=== PATIENT | female | born 1940 | race Caucasian/White ===

== ENCOUNTER → 2018-02-10 07:07 | Outpatient (CLI) | payer MEDICARE, OTHER, SELFPAY ==
[2018-02-10 10:55] LABS: Vitamin D,25 Hydroxy 46.6 ng/mL (29.95-100.01)
[2018-02-10 11:04] LABS: ALB/GLOB Ratio 1.1 RATIO (0.9-2.4); AST(SGOT) 24 U/L (15-37); Alanine Aminotransfer ALT/SGPT 25 U/L (13-56); Albumin, Serum 3.9 g/dL (3.2-5.0); Alkaline Phosphatase 58 U/L (45-117); Anion Gap 8 (5-15); BUN 16 mg/dL (7-18); BUN/Creat Ratio 19.4 RATIO (10-20); Calcium,Total 9.2 mg/dL (8.5-10.1); Chloride 106 mmol/L (98-107); Cholesterol 203 mg/dL (200); Creatinine, Serum 0.82 mg/dL (0.55-1.02); EST Glomerular Filtration Rate 72 mL/min (>60); Est Glom Filt Rate - Afr Amer 87 mL/min (>60); Globulin 3.6 g/dL (2.2-4.2); Glucose 67 mg/dL (74-106); High Density Lipoprotein 71 mg/dL; Potassium 4.3 mmol/L (3.5-5.1); Protein, Total 7.5 g/dL (6.4-8.2); Sodium Level 145 mmol/L (136-145); Triglycerides 69 mg/dL; Very Low Density Lipoprotein 14 mg/dL (5-40)
== END ==
PROVIDERS: Family Provider Family Medicine; PCP Family Medicine; Referring Provider Family Medicine; Visit Provider Family Medicine
DX: E78.5 Hyperlipidemia, unspecified (principal); E55.9 Vitamin D deficiency, unspecified; R53.83 Other fatigue
CPT/HCPCS: 36415; 80053; 80061; 82306; 84443

== ENCOUNTER → 2018-03-12 07:05 | Outpatient (CLI) | payer MEDICARE, OTHER, SELFPAY ==
--- NOTE | 2018-03-12 07:11 | BI_ITS ---
MAMMOGRAPHY - BILATERAL SCREENING REASON FOR EXAM: Female, 78 years old. Routine annual screening examination. PERTINENT HISTORY: Non-contributory. TECHNIQUE: Digital bilateral breast karin (3D mammographic acquisition) in the CC and MLO projections. 2-D mediolateral oblique (MLO) and craniocaudad (CC) views of both breasts were obtained. CAD: Full Field Digital Mammography with Computer Added Detection was performed. COMPARISON: Comparison is made with prior study dated February 20, 2017 and February 20, 2060. FINDINGS: Breast Composition: The breasts are heterogeneously dense, which may obscure small masses. There are no dominant masses or suspicious calcifications. Stable asymmetry of breast tissue where glandular tissue is seen in the deep slightly medial aspect of the left breast as compared to the right side. No other significant abnormalities are identified. There has been no significant change since the prior study. BI/SCREENING MAMM (CAD), BILAT IMPRESSION: Stable bilateral screening mammogram. Yearly follow-up mammogram recommended. (A) ASSESSMENT CATEGORY: BIRADS Category 2: Benign. A letter regarding these results will be sent to the patient by the facility within 30 days. Approximately 10% of breast cancers are not detected by mammography. A normal mammogram should not delay biopsy of a clinically suspicious abnormality. [id number] Electronically Signed: Luis Fernando Suarez MD at 9:07 EST Tel [phone], Service support ,
--- NOTE | 2018-03-12 07:59 | BD_ITS ---
STUDY: DUAL ENERGY X-RAY ABSORPTIOMETRY / DXA REASON FOR EXAM: Female, 78 years old. The patient is postmenopausal. Loss of height. TECHNIQUE: Bone Mineral Density (BMD) measurements of lumbar spine and bilateral hips were obtained. COMPARISON: Comparison is made with prior study dated February 20, 2016. FINDINGS: Lumbar Spine (L1-L4): g/cm2 (1.151) / T-score (-0.1) / Z-score (1.7) Findings are suggestive of normal bone density with a low fracture risk. Left Femur Total: g/cm2 (0.912) / T-score (-0.8) / Z-score (1.0) Left Femoral Neck: g/cm2 (0.903) / T-score (-1.0) / Z-score (1.0) Right Femur Total: g/cm2 (0.929) / T-score (-0.6) / Z-score (1.2) Right Femoral Neck: g/cm2 (0.904) / T-score (-1.0) / Z-score (1.0) The T-Scores on the most recent prior examination were: Lumbar Spine (L1-L4): There has been improvement of bone density since the previous examination. Left Femur Total: which represents a worsening of 2.3%. Right Femur Total: which represents a worsening of 0.7%. BD/Dexa Bone Density Study IMPRESSION: The patient is considered normal as outlined below according to World Rafael Organization (WHO) criteria with a low fracture risk. There has been worsening of bone density since the previous examination. Reference Information: The T-score is the number of standard deviations above or below the standard which is normal for young adults at their peak bone mineral density. The World Health Organization (WHO) interprets the T-scores as follows: Above -1 Normal bone density Between -1 and -2.5 Osteopenia Equal to / or below -2.5 Osteoporosis As a practical clinical guideline, osteopenia may be graded as follows: Mild -1 through -1.5 Moderate -1.6 through -2.0 Severe -2.1 through -2.4 The Z-score is the number of standard deviations above or below age-matched controls. A Z-score of less than -1.5 would be considered abnormal. References: 1. NIH Osteoporosis and Related Bone Diseases http://www.osteo.org 2. International Society for Clinical Densitometry http://www.iscd.org 3. National Osteoporosis Foundation http://www.nof.org Electronically Signed: Luis Fernando Suarez MD at 13:29 EST Tel [phone], Service support ,
== END ==
PROVIDERS: Family Provider Family Medicine; PCP Family Medicine; Referring Provider Family Medicine; Visit Provider Family Medicine
DX: Z12.31 Encounter for screening mammogram for malignant neoplasm of breast (principal); Z78.0 Asymptomatic menopausal state
CPT/HCPCS: 77063; 77067; 77080

== ENCOUNTER → 2019-02-16 | Outpatient (CLI) | payer MEDICARE, OTHER, SELFPAY ==
[2019-02-16 10:43] LABS: Hematocrit 41.7 % (37-47); Mean Corp Hgb Conc 31.2 g/dL (32-36); Mean Corpuscular Hgb 29.8 pg (27.0-32.0); Mean Corpuscular Volume 95.6 fL (81-99); Mean Platelet Vol. 9.9 fl (6.2-12.0); Platelet Count 206 K/mm3 (150-450); RBC Distribution Width CV 13.2 % (11.6-14.6); RBC Distribution Width SD 47.1 fl (35.1-43.9); Red Blood Count 4.36 M/mm3 (4.2-5.4); White Blood Count 3.8 K/mm3 (4.4-11.0)
[2019-02-16 11:06] LABS: Vitamin D,25 Hydroxy 38.3 ng/mL (29.95-100.01)
[2019-02-16 11:26] LABS: AST(SGOT) 24 U/L (15-37); Alanine Aminotransfer ALT/SGPT 26 U/L (13-56); Albumin, Serum 3.7 g/dL (3.2-5.0); Alkaline Phosphatase 61 U/L (45-117); Anion Gap 8 (5-15); BUN 17 mg/dL (7-18); Calcium,Total 8.7 mg/dL (8.5-10.1); Chloride 107 mmol/L (98-107); Cholesterol 180 mg/dL (200); Creatinine, Serum 0.85 mg/dL (0.55-1.02); EST Glomerular Filtration Rate 69 mL/min (>60); Est Glom Filt Rate - Afr Amer 84 mL/min (>60); Globulin 3.8 g/dL (2.2-4.2); Glucose 71 mg/dL (74-106); High Density Lipoprotein 67 mg/dL; Potassium 4.2 mmol/L (3.5-5.1); Protein, Total 7.5 g/dL (6.4-8.2); Sodium Level 143 mmol/L (136-145); Triglycerides 70 mg/dL; Very Low Density Lipoprotein 14 mg/dL (5-40)
== END | disposition home or self-care (01) ==
LOC: MTLAB 07:06
PROVIDERS: Family Provider Family Medicine; PCP Family Medicine; Referring Provider Family Medicine; Visit Provider Family Medicine
DX: Z00.00 Encounter for general adult medical examination without abnormal findings (principal)
CPT/HCPCS: 36415; 80053; 80061; 82306; 84443; 85027

== ENCOUNTER → 2019-03-16 07:06 | Outpatient (CLI) | payer MEDICARE, OTHER, SELFPAY ==
--- NOTE | 2019-03-16 07:09 | BI_ITS ---
MAMMOGRAPHY - BILATERAL SCREENING REASON FOR EXAM: Female, 79 years old. Routine annual screening examination. PERTINENT HISTORY: Non-contributory. TECHNIQUE: Digital bilateral breast norman (3D mammographic acquisition) in the CC and MLO projections. 2-D mediolateral oblique (MLO) and craniocaudad (CC) views of both breasts were obtained. CAD: Full Field Digital Mammography with Computer Added Detection was performed. COMPARISON: Comparison is made with prior study dated March 12, 2018 and February 20, 2017. FINDINGS: Breast Composition: The breasts are heterogeneously dense, which may obscure small masses. There are no dominant masses or suspicious calcifications. Stable asymmetry of breast tissue were more breast tissue is seen in the deep slightly medial aspect of the left breast as compared to the right side. This is unchanged. No other significant abnormalities are identified. There has been no significant change since the prior study. BI/SCREEN MAMM (CAD) W/NORMAN BILAT IMPRESSION: Stable bilateral screening mammogram. Yearly follow-up mammogram recommended. (A) ASSESSMENT CATEGORY: BIRADS Category 2: Benign. A letter regarding these results will be sent to the patient by the facility within 30 days. Approximately 10% of breast cancers are not detected by mammography. A normal mammogram should not delay biopsy of a clinically suspicious abnormality. [id number] Electronically Signed: Luis Fernando Suarez, at 8:22 EST , Service support ,
== END ==
PROVIDERS: Family Provider Family Medicine; PCP Family Medicine; Referring Provider Family Medicine; Visit Provider Family Medicine
DX: Z12.31 Encounter for screening mammogram for malignant neoplasm of breast (principal)
CPT/HCPCS: 77063; 77067

== ENCOUNTER → 2020-01-10 | Outpatient (CLI) | payer MEDICARE, OTHER, SELFPAY ==
[2020-01-10 15:23] LABS: Hematocrit 41.7 % (37-47); Hemoglobin 12.9 g/dL (12.0-15.0); Mean Corp Hgb Conc 30.9 g/dL (32-36); Mean Corpuscular Hgb 29.6 pg (27.0-32.0); Mean Corpuscular Volume 95.6 fL (81-99); Platelet Count 243 K/mm3 (150-450); RBC Distribution Width CV 12.7 % (11.6-14.6); RBC Distribution Width SD 45.4 fl (35.1-43.9); Red Blood Count 4.36 M/mm3 (4.2-5.4); White Blood Count 5.3 K/mm3 (4.4-11.0)
[2020-01-10 15:53] LABS: Anion Gap 6 (5-15); BUN 14 mg/dL (7-18); BUN/Creat Ratio 17.6 RATIO (10-20); Calcium,Total 9.1 mg/dL (8.5-10.1); Chloride 107 mmol/L (98-107); EST Glomerular Filtration Rate 74 mL/min (>60); Est Glom Filt Rate - Afr Amer 90 mL/min (>60); Glucose 79 mg/dL (74-106); Magnesium 2.3 mg/dL (1.6-2.6); Potassium 3.8 mmol/L (3.5-5.1); Sodium Level 144 mmol/L (136-145); Thyroid Stim Hormone (TSH) 1.96 uIU/mL (0.358-3.74)
== END | disposition home or self-care (01) ==
PROVIDERS: PCP Family Medicine; Referring Provider Family Medicine; Visit Provider Family Medicine
DX: E78.5 Hyperlipidemia, unspecified (principal); F41.9 Anxiety disorder, unspecified; R42 Dizziness and giddiness
CPT/HCPCS: 36415; 80048; 83735; 84443; 85027

== ENCOUNTER 2020-02-16 09:46 | Day surgery (SDC) | payer MEDICARE, OTHER, SELFPAY ==
[2020-01-27 14:27] VITALS: BMI 22.6
[2020-02-16] VITALS (7 sets, daily range): BP systolic 91–113; BP diastolic 65–71; PULSE 85–107; RESP 16–18; TEMP 36.3–36.4; O2SAT 91–99; BMI 21.5
--- NOTE | 2020-02-16 10:00 | HP_ITS ---
Intake Vital Signs 01/27/20 Height 5 ft 5 in 01/27/20 Weight: 136 lb 01/27/20 BP 124/57 H 01/27/20 Blood Pressure Location Rt brachial 01/27/20 Position Sitting 01/27/20 Respiration 18 01/27/20 Pulse 76 01/27/20 Pulse Source Monitor 01/27/20 Temp 97.3 F L 01/27/20 Temp Source Temporal 01/27/20 Pulse Oximetry (%) 99 01/27/20 Oxygen Delivery Method room air Intake Visit Reasons: CSCOPE Chief Complaint: c-scope consult Cell Attendant Helper Required: No Is patient in pain?: No Allergies No Known Allergies Allergy (Unverified 01/27/20 14:29) Medications sertraline 50 mg tablet 50 mg PO DAILY 01/27/20 [History Confirmed 01/27/20] simvastatin 20 mg tablet 20 mg PO QHS 01/27/20 [History Confirmed 01/27/20] PFSH Medical History Abdominal pain (Acute) Arthritis (Acute) Bacterial colitis (Acute) Diarrhea (Acute) Fatigue (Acute) Hyperlipidemia (Acute) Sleep apnea (Acute) Surgical History History of arthroscopic knee surgery (Acute) History of carpal tunnel release of both wrists (Acute) History of colonoscopy (Acute ~2012) Social History (Updated 02/01/20 @ 12:[address] Gerry Jasso MD) Smoking Status: Former smoker alcohol intake: current alcohol intake frequency: a few times a month substance use type: does not use HPI HPI Surgical H&P: Yes HPI: BRINDA CORRALES, is a 79 F who presents to the office today for Evaluation for colonoscopy. Patient has been having crampy diarrhea for about the last 4 weeks. There is not been any blood in it and has been explosive in nature. Her last colonoscopy was in 2012 and that was secondary to bacterial colitis. She has been using Kaopectate with some results of her looser stools. She is not complaining of any peritoneal irritation. She has not had any nausea or vomiting. ROS General General: Yes fatigue; no weight change, appetite, colon cancer, breast cancer or weakness HEENT HEENT: No difficulty swallowing, eye injury, eye surgery, swollen glands or hoarseness Endo Endocrine: No thyroid disease, diabetes mellitus, thyroid cancer, Hair loss, heat intolerance or cold intolerance Skin Skin: No rash or changing moles Breast Breast: No left breast lump, right breast lump, nipple discharge, breast pain, abnormal mammogram, abnormal US or breast enlargement Musc Musculoskeletal: Yes arthritis; no back problems, rheumatoid arthritis, gout or joint pain Cardio Cardiovascular: No murmur, pacemaker, heart disease, atrial fibrillation, high blood pressure, heart attack, heart stent, palpitations, shortness of breat with exertion or chest pain Psych Psychiatric: No depression, anxiety or hearing voices Resp Respiratory: No shortness of breath, Yes sleep apnea, No cough, No COPD, No asthma, No emphysema, No wheezing Gastro Gastrointestinal: Yes abdominal pain, No nausea or vomiting, Yes diarrhea, No constipation, No blood in stool, No acid reflux, No hemorrhoids, No ulcers, No gallbladder problem, No black,tarry stools Rajendra Hematologic: No blood thinners, No blood disorders, No bleeding, No anemia, No blood clots Neuro Neurologic: No system reviewed and no additional complaints, except as docu, No as per HPI, No abnormal walking, No abnormal hearing, No abnormal movements, No abnormal speech, No behavioral changes, No burning sensations, No confusion, No seizure-like activity, No unsteadiness, No dizziness, No localized weakness, No frequent falls, No headache(s), No lack of coordination, No loss of vision, No memory loss, No numbness, No other visual disturbances, No radiating pain, No restless legs, No sensory deficit, No fainting, No tingling, No tremor(s), No weakness, No other Exam Const General: no acute distress, well developed, well hydrated Orientation: oriented to person, oriented to place, oriented to time [facility] Head: normocephalic, atraumatic Ears: external ears normal Mouth: moist mucous membranes Eyes Sclera: sclerae normal Pupils: normal by confrontation Neck Neck: no lymphadenopathy noted Neck mass: No Thyroid: thyroid normal, symmetrical Chest Chest palpation & inspection: normal inspection of the chest Breast Palpation: No nipple discharge Resp Effort & Inspection: normal respiratory effort Auscultation: clear to auscultation bilaterally Percussion: percussion normal Cardio Rate: regular rate Rhythm: regular rhythm Heart Sounds: no murmurs GI Palpation: soft, no hepatosplenomegaly, no masses, nontender Rectal Exam: other Other: Rectal exam deferred. Extrem General: normal to inspection, no clubbing, cyanosis or edema Assessment & Plan Problems 1. Diarrhea, unspecified type R19.7 Plan I have discussed the above with the patient. I have offered the patient colonoscopy for evaluation. I have explained the risks/benefits of the procedure and described the procedure. I have discussed the risks with the patient, including but not limited to: infection, bleeding, perforation of the GI tract requiring emergency surgery, inability to complete the procedure, injury to any internal organs, complications of anesthesia, etc. - the patient understands and agrees to proceed. I have answered all the patient's questions to the patient's satisfaction and the patient has no further questions. The patient has been given instructions for the colon cleansing preparation. I am going to obtain stool studies on her as well. I will be doing random colon biopsies. Coding Level of Care Code Off vis,new,level 3 Diagnoses Diarrhea, unspecified type R19.7 ??Diarrhea type: unspecified type I have re-examined the patient. There are no clinical changes since date of exam.
[2020-02-16] MEDS: Lactated Ringers 1,000 ML 100 ML IV (10:14)
--- NOTE | 2020-02-16 11:00 | COLBX_PTH ---
PATIENT: BRINDA CORRALES LOC: EN U#:[id number] AGE/SX: 80/F ROOM: RE02/16/[address]: Dr. Gerry Jasso MD : 1940 BED: DIS: 02/16/2020 SPEC #: [id number] RECD: 02/16/20 11:51 STATUS: CARLY REPriya #: [id number] HUMBERTO: 02/16/20 11:[address]: Gerry Jasso DEPT: SURGICAL PATHOLOGY RECD BY: Hamida Desai ENTERED: 02/16/20 13:39 SP TYPE: COLON BX OT DR: Dr. New Allison MD Tissues: COLON BIOPSY Procedures: Trichrome (control) Special Stain Group II Surgery Specimen Level IV HEADER OPERATION: Colonoscopy (MAC) PRE-OP DIAGNOSIS: Diarrhea TISSUE SUBMITTED: Random colonic biopsy MICROSCOPIC DIAGNOSIS Colon, random biopsy: Fragments of colonic mucosa with changes consistent with collagenous colitis. See comment. SJ:virgil 02/17/20 COMMENT Trichrome stain with matched control is used in the evaluation of the specimen and shows focal thickening of subepithelial collagen band. 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 MICROSCOPIC DESCRIPTION Slides are reviewed. GROSS DESCRIPTION Received in fixative is one container labeled with the patient's name and designated random colonic biopsy. The specimen consists of multiple irregular fragments of light betancur soft tissue that in aggregate measure 1 x 0.5 x 0.1 cm. The specimen is totally submitted in one cassette. / CARMELA:virgil 02/16/20 TC:5 CPT: 38449, 76222
--- NOTE | 2020-02-16 11:01 | OP.COLON_ITS ---
Patient Name: Charlotte Ruiz Procedure Date: 02/16/2020 10:28 AM Date of : 1940 Age: 80 Procedure: Colonoscopy Indications: Clinically significant diarrhea of unexplained origin Providers: Gerry Jasso MD Referring MD: Michael Allison Medicines: See the Anesthesia note for documentation of the administered medications Patient Profile: This is a 80 year old female. Refer to note in patient chart for documentation of history and physical. Last Colonoscopy: 2012. Complications: No immediate complications. Procedure: Pre-Anesthesia Assessment: - Prior to the procedure, a History and Physical was performed, and patient medications and allergies were reviewed. The patient's tolerance of previous anesthesia was also reviewed. The risks and benefits of the procedure and the sedation options and risks were discussed with the patient. All questions were answered, and informed consent was obtained. Prior Anticoagulants: The patient has taken no previous anticoagulant or antiplatelet agents. ASA Grade Assessment: II - A patient with mild systemic disease. After reviewing the risks and benefits, the patient was deemed in satisfactory condition to undergo the procedure. After I obtained informed consent, the scope was passed under direct vision. Throughout the procedure, the patient's blood pressure, pulse, and oxygen saturations were monitored continuously. The adult colonoscope was introduced through the anus and advanced to the cecum, identified by appendiceal orifice and ileocecal valve. The colonoscopy was performed without difficulty. The patient tolerated the procedure well. The quality of the bowel preparation was good. Scope In: 10:37:12 AM Scope Withdrawal Time 0 hours 6 minutes 15 seconds Scope Out: 10:57:18 AM Total Procedure Duration Time 0 hours 20 minutes 6 seconds Findings: The colon (entire examined portion) appeared normal. Biopsies for histology were taken with a cold forceps from the entire colon for evaluation of microscopic colitis. The exam was otherwise without abnormality. Non-bleeding internal hemorrhoids were found during retroflexion. The hemorrhoids were mild and small. Impression: - The entire examined colon is normal. Biopsied. - The examination was otherwise normal. Recommendation: - Discharge patient to home. - Resume previous diet. - Continue present medications. - Await pathology results. - Repeat colonoscopy in 10 years for screening purposes. - Return to GI office in 1 week. Procedure Code(s): --- Professional --- 26831, Colonoscopy, flexible; with biopsy, single or multiple Diagnosis Code(s): --- Professional --- R19.7, Diarrhea, unspecified CPT copyright 2017 [employer]. All rights reserved. The codes documented in this report are preliminary and upon data coder operator review may be revised to meet current compliance requirements. MD Gerry Sorensen MD 02/16/2020 11:01:38 AM This report has been signed electronically. Number of Addenda: 0 Note Initiated On: 02/16/2020 10:28 AM
--- NOTE | 2020-02-16 11:02 | OP.CCLET_ITS ---
02/16/2020 Michael Allison [address] [place] [address] Re : Colonoscopy procedure for Charlotte Ruiz Dear Dr. Allison This procedure was performed on Sunday, February 16, 2020. My impressions and recommendations are as follows: Impressions : - The entire examined colon is normal. Biopsied. - The examination was otherwise normal. Recommendations : - Discharge patient to home. - Resume previous diet. - Continue present medications. - Await pathology results. - Repeat colonoscopy in 10 years for screening purposes. - Return to GI office in 1 week. My findings are described in the full procedure note, which is enclosed. If I can be of further assistance, please feel free to contact me at Doctor phone number(s): , Fax: [phone], Work: . Sincerely, MD Gerry Sorensen MD 02/16/2020 11:01:38 AM This report has been signed electronically.
== END 2020-02-16 11:51 | disposition home or self-care (01) ==
LOC: EN 09:46 → AC 09:46
PROVIDERS: Anesthesiology; PCP Family Medicine; Referring Provider Family Medicine; Visit Provider Surgery
PROC: 0DJD8ZZ Inspection of Lower Intestinal Tract, Via Natural or Artificial Opening Endoscopic (ICD-10-PCS; CPT 45378; principal; 2020-02-16 10:55)
DX: K52.831 Collagenous colitis (principal); K64.8 Other hemorrhoids; M19.90 Unspecified osteoarthritis, unspecified site; E78.5 Hyperlipidemia, unspecified; G47.30 Sleep apnea, unspecified; Z87.891 Personal history of nicotine dependence; Z79.899 Other long term (current) drug therapy; Z20.828 Contact with and (suspected) exposure to other viral communicable diseases
CPT/HCPCS: 45380; 87635; 88305; 88313; C9803; J7120; J2405; U0003

== ENCOUNTER → 2020-02-25 07:04 | Outpatient (CLI) | payer MEDICARE, OTHER, SELFPAY ==
[2020-02-16 10:09] VITALS: BMI 21.5
[2020-02-25 10:15] LABS: AST(SGOT) 26 U/L (15-37); Alanine Aminotransfer ALT/SGPT 22 U/L (13-56); Albumin, Serum 3.6 g/dL (3.2-5.0); Alkaline Phosphatase 58 U/L (45-117); Bilirubin, Direct 0.12 mg/dL (0.00-0.30); Cholesterol 175 mg/dL (200); Globulin 3.7 g/dL (2.2-4.2); High Density Lipoprotein 67 mg/dL; Protein, Total 7.3 g/dL (6.4-8.2); Triglycerides 72 mg/dL; Very Low Density Lipoprotein 14 mg/dL (5-40)
== END ==
PROVIDERS: PCP Family Medicine; Referring Provider Family Medicine; Visit Provider Family Medicine
DX: E78.5 Hyperlipidemia, unspecified (principal)
CPT/HCPCS: 36415; 80061; 80076

== ENCOUNTER → 2020-04-05 11:18 | Outpatient (CLI) | payer MEDICARE, OTHER, SELFPAY ==
[2020-02-16 10:09] VITALS: BMI 21.5
--- NOTE | 2020-04-05 11:19 | BI_ITS ---
MAMMOGRAPHY - BILATERAL SCREENING REASON FOR EXAM: Female, 80 years old. Routine annual screening examination. PERTINENT HISTORY: Non-contributory. TECHNIQUE: Digital bilateral breast norman (3D mammographic acquisition) in the CC and MLO projections. 2-D mediolateral oblique (MLO) and craniocaudad (CC) views of both breasts were obtained. CAD: Full Field Digital Mammography with Computer Added Detection was performed. COMPARISON: Comparison is made with prior study dated 03/16/2019. FINDINGS: Breast Composition: The breasts are heterogeneously dense, which may obscure small masses. There are no dominant masses or suspicious calcifications. Stable asymmetry of breast tissue where more breast tissue is seen in the deep slightly medial aspect of the left breast. No other significant abnormalities are identified. There has been no significant change since the prior study. BI/SCREEN MAMM (CAD) W/NORMAN BILAT IMPRESSION: Stable bilateral screening mammogram. Yearly follow-up mammogram recommended. (A) ASSESSMENT CATEGORY: BIRADS Category 2: Benign. A letter regarding these results will be sent to the patient by the facility within 30 days. Approximately 10% of breast cancers are not detected by mammography. A normal mammogram should not delay biopsy of a clinically suspicious abnormality. [id number] Electronically Signed: Luis Fernando Suarez, at 13:09 EST , Service support ,
--- NOTE | 2020-04-05 11:24 | BD_ITS ---
STUDY: DUAL ENERGY X-RAY ABSORPTIOMETRY / DXA REASON FOR EXAM: Female, 80 years old. PASTE THINNER -- HX OF HRT FOR 5 YRS IN PAST -- HX OF SMOKING IN PAST -- TAKES CALCIUM AND MULTIVITAMIN -- DOES MODERATE AMOUNT OF EXERCISE -- FAMILY HX OF OSTEO- MOTHER -- ASHOK OF 2 INCHES TECHNIQUE: Bone Mineral Density (BMD) measurements of lumbar spine and bilateral hips were obtained. COMPARISON: Comparison is made with prior examination dated 03/12/2018. FINDINGS: Lumbar Spine (L1-L4): g/cm2 (1.580) / T-score (3.2) / Z-score (5.0) Findings are suggestive of normal bone density with a low fracture risk. Left Femur Total: g/cm2 (0.894) / T-score (-0.9) / Z-score (1.0) Left Femoral Neck: g/cm2 (0.854) / T-score (-1.3) / Z-score (0.7) Right Femur Total: g/cm2 (0.951) / T-score (-0.5) / Z-score (1.4) Right Femoral Neck: g/cm2 (0.880) / T-score (-1.1) / Z-score (0.9) The T-Scores on the most recent prior examination were: Lumbar Spine (L1-L4): There has been improvement of bone density since the previous examination. Left Femur Total: which represents a worsening of 2%. Right Femur Total: which represents an improvement of 2.4%. BD/Dexa Bone Density Study IMPRESSION: The patient is considered osteopenic as outlined below according to World Rafael Organization (WHO) criteria with a low fracture risk. There has been improvement of bone density since the previous examination. Reference Information: The T-score is the number of standard deviations above or below the standard which is normal for young adults at their peak bone mineral density. The World Health Organization (WHO) interprets the T-scores as follows: Above -1 Normal bone density Between -1 and -2.5 Osteopenia Equal to / or below -2.5 Osteoporosis As a practical clinical guideline, osteopenia may be graded as follows: Mild -1 through -1.5 Moderate -1.6 through -2.0 Severe -2.1 through -2.4 The Z-score is the number of standard deviations above or below age-matched controls. A Z-score of less than -1.5 would be considered abnormal. References: 1. NIH Osteoporosis and Related Bone Diseases www osteo.org 2. International Society for Clinical Densitometry www iscd.org 3. National Osteoporosis Foundation www nof.org Electronically Signed: Luis Fernando Suarez, at 15:46 EST , Service support ,
== END ==
PROVIDERS: PCP Family Medicine; Referring Provider Family Medicine; Visit Provider Family Medicine
DX: Z78.0 Asymptomatic menopausal state (principal); Z12.31 Encounter for screening mammogram for malignant neoplasm of breast
CPT/HCPCS: 77063; 77067; 77080

== ENCOUNTER 2020-12-15 02:46 | Inpatient (IN) | payer MEDICARE, OTHER, SELFPAY ==
[2020-12-15] VITALS (82 sets, daily range): BP systolic 47–257; BP diastolic 16–189; PULSE 46–211; RESP 14–19; TEMP 35–39.4; O2SAT 80–100; BMI 26.8; BMI 25.3
[2020-12-15] MEDS: Heparin 10,000 UNITS/10 ML Vial 4000 UNITS IV (02:57)
--- NOTE | 2020-12-15 02:57 | EKG12_ITS ---
Test Reason : STEMI Blood Pressure : / mmHG Vent. Rate : 126 BPM Atrial Rate : 126 BPM P-R Int : 138 ms QRS Dur : 086 ms QT Int : 334 ms P-R-T Axes : 052 -51 081 degrees QTc Int : 483 ms Sinus tachycardia Left anterior fascicular block Abnormal ECG Confirmed by CATHIE HARGROVE, LORNA ([id number]), copy editor ROBYN RAMOS ([id number]) on 12/18/2020 1:07:45 PM Referred By: Suraj Washington Confirmed By:LORNA BRAND MD
--- NOTE | 2020-12-15 03:00 | EDS_ITS ---
HPI History of Present Illness Chief Complaint: CPR Narrative Narrative: 80-year-old female apparently woke up clutching her chest and then fell out of bed unresponsive. called 911, they directed him to start CPR which he did before paramedics arrived. EMS states CPR was in progress by the , when I hooked her up to the monitor she was in PEA, they performed ACLS with 1 round of epinephrine, after which on pulse check they had a perfusing rhythm and a pulse. They placed an I-gel for an airway. [facility] OF [facility] Medical History Abdominal pain Arthritis Bacterial colitis Diarrhea Fatigue Hyperlipidemia Sleep apnea Home Medications sertraline 50 mg tablet 50 mg PO DAILY 01/27/20 [History Last Taken Unknown] simvastatin 20 mg tablet 20 mg PO QHS 01/27/20 [History Last Taken Unknown] Allergy/AdvReac Type Severity Reaction Status Date / Time No Known Allergies Allergy Verified 12/15/20 03:18 Surgical History History of arthroscopic knee surgery History of carpal tunnel release of both wrists History of colonoscopy (~2012) Social History Smoking Status: Unknown if ever smoked alcohol intake: current alcohol intake frequency: a few times a month substance use type: does not use ROS ROS ED Review of Systems ROS Unobtainable: due to mental status EXAM Physical Exam Const Vital Signs: 12/15/20 02:49 12/15/20 02:51 12/15/20 02:57 Temperature 96.3 F L 96.3 F L Temperature Source Temporal Temporal Pulse Rate 134 H 134 H 127 H Respiratory Rate 15 15 16 Blood Pressure 84/64 L 84/64 L 85/65 L Blood Pressure Mean 70 70 71 Blood Pressure Source Pulse Ox 95 95 100 Oxygen Delivery Method Ambu-Bag Ambu-Bag Ambu-Bag Oxygen Flow Rate (L/min) 12/15/20 03:03 12/15/20 03:13 12/15/20 03:34 Temperature Temperature Source Pulse Rate 84 Respiratory Rate 14 Blood Pressure 74/62 L 65/51 L Blood Pressure Mean 66 55 Blood Pressure Source Monitor Pulse Ox 98 100 Oxygen Delivery Method Mechanical Ventilator Oxygen Flow Rate (L/min) 70 Positive well nourished and well developed Constitutional Narrative: Obtunded General Appearance ED: well developed HEENT normocephalic and atraumatic Eyes Eyes Narrative: Pupils 3 mm and very sluggishly responsive Neck supple Resp Resp Narrative: No spontaneous respirations. Equal breath sounds bilaterally with bagging. Cardio regular rate, regular rhythm and no murmurs Cardio Narrative: 1+ central pulses intact Rate: tachycardic GI non-distended Palpation: soft Back/Spine Back/Spine Narrative: Normal inspection Extremity Extremity Narrative: Flaccid. Atraumatic. Normal inspection. Neuro [place] Coma Scale: document GCS findings None None None 3 Skin Lesions: no lesions Rashes: no rashes MDM MDM MDM Narrative Medical decision making narrative: Prehospital EKG showed an inferior STEMI, which was called prehospital. We switched out her I-gel for an ETT, see the procedure note, and then obtained an EKG. It shows sinus tachycardia with a left anterior fascicular block and no acute STEMI at this time. She was given aspirin, I discussed with interventional cardiology Dr. Washington, who evaluated the patient in the emergency department and decided not to take her emergently to the [facility] and recommends ICU care at this time. We started bolusing the patient with normal saline upon arrival given her blood pressure in the 80s, this was persistent after 1 L, so she was started on Levophed. We did send her to CT for a head scan given the fairly unremarkable EKG here, it shows no acute hemorrhage. Lab Data Attestation: I reviewed the patient's lab results. Labs: Laboratory Results - last 24 hr 12/15/20 12/15/20 02:50 02:50 WBC 8.1 RBC 4.41 Hgb 13.2 Hct 43.0 MCV 97.5 MCH 29.9 MCHC 30.7 L RDW Std Deviation 46.4 H RDW Coeff of Addison 12.9 Plt Count 218 MPV 10.1 Immature Gran % (Auto) 1.700 H Neut % (Auto) 22.6 L Lymph % (Auto) 71.1 H [place] % (Auto) 4.1 Eos % (Auto) 0.0 Baso % (Auto) 0.5 Absolute Neuts (auto) 1.8 L Absolute Lymphs (auto) 5.75 H Nucleated RBC % 0.2 Differential Comment SCANNED Sodium 144 Potassium 3.0 L Chloride 108 H Carbon Dioxide 24.0 Anion Gap 12 BUN 16 Creatinine 1.09 H Estim Creat Clear Calc 41.36 Est GFR (MDRD) Af Amer 62 Est GFR (MDRD) Non-Af 52 L BUN/Creatinine Ratio 14.7 Glucose 261 H Calcium 8.8 Troponin I High Sens 13 Radiography Chest X-Ray - ED: 1 View, Read by ED Physician and CHF (With good ETT placement) Diagnostic Testing: Radiology Impression Chest X-Ray 12/15/20 03:10 IMPRESSION: Cannot exclude diffuse interstitial pneumonitis versus edema. Lines and tubes as described. Recommend advancing the nasogastric tube approximately 7-10 cm Electronically Signed: Paige Prieto MD at 3:23 EDT , Service support , EKG Initial EKG: Attestation: I personally reviewed and interpreted this EKG as follows: Interpretation: No Acute Injury Pattern, Sinus Tachycardia and LAFB Procedures Intubations Intubation Method: orotracheal (7.0 ETT, visualized passing through cords using MAC 3 glide scope) Intubation Verification: Positive color change and Bilateral breath sounds confirmed (And confirmed by chest x-ray) Intubation Complications: no complications Critical Care Time Critical Care Time: Yes Critical care time (excluding procedures): 30-74 minutes (40 min), Including time spent:, Discussing w/Patient &/or Family/Manager Income Tax, Discussing w/Consultants, Arranging Admission or Transfer and Performing Direct Patient Care at Bedside Discharge Plan Dx/Rx/DC Orders Clinical Impression: Cardiopulmonary arrest with successful resuscitation Disposition Disposition: Acute Care [facility]
[2020-12-15] MEDS: 0.9% Normal Saline 1,000 ML 999 ML IV ×2 (03:05→03:17)
[2020-12-15] MEDS: Aspirin 81 MG TAB.CHEW 324 MG NG (03:05)
--- NOTE | 2020-12-15 03:10 | RAD_ITS ---
STUDY: X-RAY CHEST REASON FOR EXAM: Female, 80 years old. chest pain TECHNIQUE: Single AP portable view of the chest. COMPARISON: None. FINDINGS: The endotracheal tube has the tip approximately 2.2 cm above marybel. The nasogastric tube has the tip below the diaphragm with sidehole at the EG junction. The lungs are normally expanded with subtle hazy opacities, cannot exclude mild diffuse soft tissue edema. There is no demonstrated pleural abnormality. Normal size heart. Normal mediastinum and luiz. Normal visualized pulmonary arteries. Normal visualized aortic arch and descending thoracic aorta. Normal visualized thoracic spine. Normal visualized ribs, clavicles, and shoulders. There is no demonstrated abnormality of the visualized soft tissue structures of the upper abdomen. RAD/Chest 1 View (Portable) IMPRESSION: Cannot exclude diffuse interstitial pneumonitis versus edema. Lines and tubes as described. Recommend advancing the nasogastric tube approximately 7-10 cm Electronically Signed: Paige Prieto MD at 3:23 EDT , Service support ,
[2020-12-15 03:14] LABS: Absolute Lymphocyte Count 5.75 X10^3/uL (0.83-4.51); Absolute Neutrophil Count 1.8 X10^3/uL (2.0-7.7); Basophil# 0.04 X10^3/uL; Basophil% 0.5 % (0-1); Hemoglobin 13.2 g/dL (12.0-15.0); Lymphocyte # 5.75 X10^3/ul (0.83-4.51); Lymphocyte % 71.1 % (19-41); Mean Corp Hgb Conc 30.7 g/dL (32-36); Mean Corpuscular Hgb 29.9 pg (27.0-32.0); Mean Corpuscular Volume 97.5 fL (81-99); Mean Platelet Vol. 10.1 fl (6.2-12.0); Monocyte# 0.33 X10^3/uL; Monocyte% 4.1 % (0-10); NRBC Flagged by Analyzer 0.2 % (0-5); Neutrophil # 1.83 X10^3/uL (2.7-7.7); Neutrophil % 22.6 % (47-70); POSITIVE DIFFERENTIAL YES; POSITIVE MORPHOLOGY YES; Platelet Count 218 K/mm3 (150-450); RBC Distribution Width CV 12.9 % (11.6-14.6); RBC Distribution Width SD 46.4 fl (35.1-43.9); Red Blood Count 4.41 M/mm3 (4.2-5.4); White Blood Count 8.1 K/mm3 (4.4-11.0)
--- NOTE | 2020-12-15 03:16 | CT_ITS ---
STUDY: CT BRAIN WITHOUT CONTRAST REASON FOR EXAM: Female, 80 years old. altered LOC RADIATION DOSAGE (If Supplied By Facility): CTDIvol = ( 44.99 ) mGy, DLP = ( 745.49 ) mGycm TECHNIQUE: Transaxial CT imaging of the brain was performed without administration of intravenous contrast material. Individualized dose optimization techniques were used for this CT. COMPARISON: No relevant priors. FINDINGS: Normal soft tissue structures. Normal calvarium. There is mild cerebral atrophy with widening of the extra-axial spaces and ventricular dilatation. There are areas of decreased attenuation within the white matter tracts of the supratentorial brain, consistent with microvascular disease changes. Normal basal ganglia and thalami. Normal brainstem. Normal cerebellum. There is no intracranial hemorrhage. There are no findings of an acute ischemic infarction. Normal visualized paranasal sinuses. CT/Brain/Head without Contrast IMPRESSION: Chronic changes as described. No acute intracranial hemorrhage or space-occupying lesion. Electronically Signed: Paige Prieto MD at 3:46 EDT , Service support ,
[2020-12-15 03:24] LABS: Differential Indicated SCAN CRITERIA MET
[2020-12-15 03:26] LABS: Anion Gap 12 (5-15); BUN 16 mg/dL (7-18); BUN/Creat Ratio 14.7 RATIO (10-20); Calcium,Total 8.8 mg/dL (8.5-10.1); Chloride 108 mmol/L (98-107); Creatinine, Serum 1.09 mg/dL (0.55-1.02); EST Glomerular Filtration Rate 52 mL/min (>60); Est Glom Filt Rate - Afr Amer 62 mL/min (>60); Estimated Creatinine Clearance 41.36 ml/min; Glucose 261 mg/dL (74-106); Sodium Level 144 mmol/L (136-145); Troponin-I HS 13 pg/mL (3.0-54.0)
[2020-12-15 03:37] LABS: Differential Comment SCANNED
[2020-12-15 03:47] LABS: Partial Thromboplast Time > 250.0 Seconds (24.1-36.2)
--- NOTE | 2020-12-15 03:52 | HP.PCM.HOS_ITS ---
HPI - General General Date of Admission: 12/15/20 HPI Narrative BRINDA CORRALES, is a 80 F with a significant history of hyperlipidemia and obstructive sleep apnea on CPAP/BiPAP who presents at the emergency department with cardiopulmonary arrest. History was taken from patient as patient was unresponsive. Per patient fall patient was sleeping patient's made a loud noise; curled herself up and fell. Patient's thought that patient was not breathing so he began CPR. Patient doubts the quality of CPR he gave because of space. Paramedics who was present the patient room reported that patient was in PEA arrest and 1 dose of epinephrine and CPR was done. Reportedly patient achieved ROSC. An LMA was placed which was switched to ET tube and mechanical ventilation began at the emergency department. In route to the emergency department a CODE BLUE was called. Later on a STEMI alert was called. On-call cardiology interventionalist saw patient at the emergency department and rule out STEMI as there were no reciprocal changes on EKG initially called as a STEMI. Follow-up EKG at the emergency department did not show ST elevations. STEMI alert at the hospital was canceled per cardiology recommendation. Because of hypotension patient was given IV bolus and was started on Levophed. Patient report that patient baseline blood pressure is low and typically is below 100. Patient was given heparin IV bolus; and aspirin by NG tube. Per cardiology recommendation patient was taken to CT scan for CT scan of her brain. CT scan of her brain did not show any bleeding. [facility] Medical History Abdominal pain Arthritis Bacterial colitis Diarrhea Fatigue Hyperlipidemia Sleep apnea Home Medications sertraline 50 mg tablet 50 mg PO DAILY 01/27/20 [History Last Taken Unknown] simvastatin 20 mg tablet 20 mg PO QHS 01/27/20 [History Last Taken Unknown] Allergy/AdvReac Type Severity Reaction Status Date / Time No Known Allergies Allergy Verified 12/15/20 03:18 other ( denied knowledge of any surgery. However patient's is unsure whether patient had tonsillectomy or chilhood surgeon.) Surgical History History of arthroscopic knee surgery History of carpal tunnel release of both wrists History of colonoscopy (~2012) Social History Smoking Status: Unknown if ever smoked alcohol intake: current alcohol intake frequency: a few times a month substance use type: does not use ROS ROS Narrative History is limited as patient is unresponsive and information was obtained from her . Pertinent positives and pertinent negatives obtained from patients is as noted in HPI. All other systems were reviewed and obtained from patient's are negative. Vital Signs Vital Signs Vital Signs: 12/15/20 02:49 12/15/20 02:51 12/15/20 02:57 Temperature 96.3 F L 96.3 F L Temperature Source Temporal Temporal Pulse Rate 134 H 134 H 127 H Respiratory Rate 15 15 16 Respiratory Pattern Blood Pressure 84/64 L 84/64 L 85/65 L Blood Pressure Mean 70 70 71 Blood Pressure Source Blood Pressure Position Pulse Ox 95 95 100 Oxygen Delivery Method Ambu-Bag Ambu-Bag Ambu-Bag Oxygen Flow Rate (L/min) Fraction of Inspired Oxygen (FIO2) 12/15/20 03:03 12/15/20 03:13 12/15/20 03:34 Temperature Temperature Source Pulse Rate 100 84 Respiratory Rate 19 H 14 Respiratory Pattern Normal Blood Pressure 74/62 L 65/51 L Blood Pressure Mean 66 55 Blood Pressure Source Monitor Blood Pressure Position Pulse Ox 98 100 100 Oxygen Delivery Method Mechanical Ventilator Oxygen Flow Rate (L/min) 70 Fraction of Inspired Oxygen (FIO2) 100 60 12/15/20 03:40 12/15/20 03:47 Temperature Temperature Source Pulse Rate 78 64 Respiratory Rate 14 14 Respiratory Pattern Blood Pressure 75/63 L 96/74 Blood Pressure Mean 67 81 Blood Pressure Source Monitor Blood Pressure Position Supine Pulse Ox 97 96 Oxygen Delivery Method Room Air Oxygen Flow Rate (L/min) 60 Fraction of Inspired Oxygen (FIO2) Weight Weight: 77.7 kg Body Mass Index (BMI) 26.8 Physical Exam Narrative Physical exam: General: Intubated on mechanical ventilation. Head: Normocephalic, atraumatic, no tenderness ENT, no trauma, moist mucous membranes, no rhinorrhea Neck: Nontender, no spinal tenderness, deformities, step-off CVS: Regular rate and rhythm Respiratory: Intubated. Lung sounds rhonchi. No wheezes. Abdomen: Soft, nontender, nondistended, normal bowel sounds, no masses : Deferred Back: Nontender, no CVA tenderness, no midline spinal tenderness, deformities, step-offs Extremities: No edema; cyanosis Skin: Normal color, no trauma, abrasions Neuro: Intubated on mechanical ventilation Psychiatry: Intubated on mechanical ventilation Results Lab / Micro Data Result Diagrams: 12/15/20 02:50 12/15/20 02:50 Labs: Laboratory Results - last 24 hr 12/15/20 02:50: WBC 8.1, RBC 4.41, Hgb 13.2, Hct 43.0, MCV 97.5, MCH 29.9, MCHC 30.7 L, RDW Std Deviation 46.4 H, RDW Coeff of [place]ison 12.9, Plt Count 218, MPV 10.1, Immature Gran % (Auto) 1.700 H, Neut % (Auto) 22.6 L, Lymph % (Auto) 71.1 H, Carbon % (Auto) 4.1, Eos % (Auto) 0.0, Baso % (Auto) 0.5, Absolute Neuts (auto) 1.8 L, Absolute Lymphs (auto) 5.75 H, Nucleated RBC % 0.2, Differential Comment SCANNED 12/15/20 02:50: Sodium 144, Potassium 3.0 L, Chloride 108 H, Carbon Dioxide 24.0, Anion Gap 12, BUN 16, Creatinine 1.09 H, Estim Creat Clear Calc 41.36, Est GFR (MDRD) Af Amer 62, Est GFR (MDRD) Non-Af 52 L, BUN/Creatinine Ratio 14.7, Glucose 261 H, Calcium 8.8, Troponin I High Sens 13 12/15/20 03:14: APTT > 250.0 H* Radiology Impression Chest X-Ray 12/15/20 03:10 IMPRESSION: Cannot exclude diffuse interstitial pneumonitis versus edema. Lines and tubes as described. Recommend advancing the nasogastric tube approximately 7-10 cm Electronically Signed: Paige Prieto MD at 3:23 EDT , Service support , Brain CT 12/15/20 03:16 IMPRESSION: Chronic changes as described. No acute intracranial hemorrhage or space-occupying lesion. Electronically Signed: Paige Prieto MD at 3:46 EDT , Service support , Assessment & Plan Assessment/Plan (1) Cardiopulmonary arrest with successful resuscitation: PLAN: Impression of head CT by radiology: No acute intracranial hemorrhage or space-occupying lesion. Actual CT head was independently interpreted and I agree with radiologist interpretation. Continue mechanical ventilation started at the emergency department. Patient looks comfortable without any sedation. As needed fentanyl IV ordered for pain and agitation. Radiologist impression impression of chest x-ray: Can not exclude diffuse interstitial pneumonitis versus edema. Actual chest x-ray was independently interpreted and agree with the records interpretation. Echocardiogram ordered. CT head did not show any infarct or bleed. Per cardiology recommendation will start heparin drip when PTT is appropriate. Review of labs showed unremarkable CBC. We will continue Levophed drip started at the emergency department. Received normal saline bolus at emergency department. Maintenance IV hydration with potassium initially ordered but with chest x-ray findings will discontinue nicole ntenance IV fluids at this time. Tube feeding flushes ordered. Trend CBC and BMP. Replace potassium. Check magnesium and phosphorus. Director [employer] consult. Hypokalemia Review of emergency medical department labs showed potassium 3.0. IV potassium supplementation ordered. DVT prophylaxis: Heparin bolus received at the emergency department. Heparin drip ordered. Charges/Coding Visit Charges Inpatient E&M: 61274 Init Hosp L3
[2020-12-15 03:55] LABS: International Normalized Ratio 1.3; Prothrombin Time (Protime)PT. 15.2 SECONDS (11.7-14.9)
--- NOTE | 2020-12-15 04:07 | ED.RN ---
0400 ptt greater than 250, lab redrawn to verify accuracy.
[2020-12-15 04:24] LABS: Partial Thromboplast Time 147.9 Seconds (24.1-36.2)
[2020-12-15 04:31] LABS: Allen Test Positive; Base Excess -7 mmol/L (-2 to +2); Blood Gas Specimen Type ART; FI02 60; Mode AC; O2 Delivery Device Adult Vent; PEEP 5; PO2 79 mmHG (75-100); RR 14; SITE L Radial; SO2 94 % (95-99); Total Carbon Dioxide 21 mmol/L; Vt 450; pCO2 42.2 mmHg (35-45); pH 7.28 (7.35-7.45)
[2020-12-15 05:08] LABS: Magnesium 2.7 mg/dL (1.6-2.6)
--- NOTE | 2020-12-15 05:55 | ECHOCS_ITS ---
Reason For Study: Cardiac Arrest Procedure This was a 2D Doppler, Color Flow transthoracic echocardiogram. Contrast injection was performed. Exam performed portable in ICU/CCU. Left Ventricle Severely dilated left ventricle. The estimated ejection fraction is EF 10-15 %. Right Ventricle Normal right ventricle. Mild global right ventricular systolic dysfunction. Atria Normal left atrium. Mitral Valve There is moderate mitral annular calcification. Mild (1+) mitral valve insufficiency. Tricuspid Valve Normal tricuspid valve. Moderate (2+) tricuspid valve insufficiency. Aortic Valve Aortic sclerosis, no stenosis. Mild (1+) aortic valve insufficiency. Pulmonic Valve The pulmonic valve is not well visualized. Great Vessels Normal aortic root. Pericardium/Pleural No pericardial effusion. Medication Diluted definity 2ml given slow IV push to enhance endocardial definition. MMode/2D Measurements & Calculations LVIDd: 5.3 cm IVSd: 0.77 cm Ao root diam: 3.6 cm LVIDs: 5.0 cm LVPWd: 0.66 cm RVDd: 3.3 cm FS: 5.5 % LAV(MOD-bp): 46.2 ml LVAd ap4: 26.5 cm2 SV(MOD-sp4): 7.7 ml LAV(MOD-bp) Indexed: 24.4 ml/m2 LVLd ap4: 6.5 cm LAV(MOD-sp2): 46.9 ml EDV(MOD-sp4): 86.2 ml LAV(MOD-sp4): 45.4 ml EDV(sp4-el): 91.2 ml LVAs ap4: 23.9 cm2 LVLs ap4: 6.0 cm ESV(MOD-sp4): 78.5 ml ESV(sp4-el): 80.7 ml EF(MOD-sp4): 8.9 % EF(sp4-el): 11.5 % SV(sp4-el): 10.5 ml LA A4 area: 16.3 cm2 LA dimension(2D): 3.3 cm RA A4 area: 10.1 cm2 Doppler Measurements & Calculations MV E max reese: 70.1 cm/sec Med Peak E' Reese: 4.6 cm/sec Ao V2 max: 107.4 cm/sec MV A max reese: 46.4 cm/sec E/E' med: 15.3 Ao max P.6 mmHg MV E/A: 1.5 Ao V2 mean: 76.2 cm/sec Ao mean P.5 mmHg Ao V2 VTI: 16.9 cm LV V1 max: 75.0 cm/sec PA V2 max: 72.8 cm/sec TR max reese: 333.3 cm/sec LV V1 max P.2 mmHg TR max P.5 mmHg ECHO/Echo Complete W/ Contrast Interpretation Summary The estimated ejection fraction is EF 10-15 %. Severe LV systolic function Global LV Hypokinesia Mild MR Mild AI Moderate TR No prior Echo to compare Ordering Physician: Jorge Herrera Referring Physician: New Allison Performed By: Romelia Ogden, PRABHAKAR, RVT
[2020-12-15] MEDS: Potassium Chloride 10mEq/100mL 10 MEQ/100 ML IV.SOLN. 100 MEQ IV BOLUS ×4 (06:33→11:17)
[2020-12-15] MEDS: 0.9% Normal Saline 1,000 ML 150 ML IV (06:35)
[2020-12-15] MEDS: LORazepam 2 MG/ML Syringe IV ×5 (07:13→20:01)
[2020-12-15 07:19] LABS: Absolute Lymphocyte Count 1.29 X10^3/uL (0.83-4.51); Absolute Neutrophil Count 10.9 X10^3/uL (2.0-7.7); Basophil# 0.04 X10^3/uL; Basophil% 0.3 % (0-1); Hematocrit 41.6 % (37-47); Lymphocyte # 1.29 X10^3/ul (0.83-4.51); Lymphocyte % 9.8 % (19-41); Mean Corp Hgb Conc 31.3 g/dL (32-36); Mean Corpuscular Hgb 29.9 pg (27.0-32.0); Mean Corpuscular Volume 95.6 fL (81-99); Mean Platelet Vol. 9.9 fl (6.2-12.0); Monocyte# 0.88 X10^3/uL; Monocyte% 6.7 % (0-10); NRBC Flagged by Analyzer 0 % (0-5); Neutrophil # 10.91 X10^3/uL (2.7-7.7); Neutrophil % 82.7 % (47-70); Platelet Count 239 K/mm3 (150-450); RBC Distribution Width CV 12.9 % (11.6-14.6); RBC Distribution Width SD 45.7 fl (35.1-43.9); Red Blood Count 4.35 M/mm3 (4.2-5.4); White Blood Count 13.2 K/mm3 (4.4-11.0)
[2020-12-15 07:32] LABS: Phosphorus 2.2 mg/dL (2.5-4.9)
--- NOTE | 2020-12-15 07:55 | PCS.PANDOC ---
PANDEMIC DOCUMENTATION INITIATED: Date: 12/11/2020 Time: 190
[2020-12-15 08:13] LABS: Partial Thromboplast Time 29.2 Seconds (24.1-36.2)
[2020-12-15] MEDS: 0.9% Saline Lock 10 ML Syringe IV ×4 (08:15→17:19)
[2020-12-15] MEDS: HEPARIN/D5w 25,000 UNITS 25,000 UNITS/250 ML IV.SOLN. 9 UNITS IV (08:16)
--- NOTE | 2020-12-15 08:28 | CON.PCM.CC_ITS ---
Assessment & Plan Assessment/Plan (1) Cardiopulmonary arrest with successful resuscitation: (2) Sleep apnea: (3) Acute respiratory failure with hypoxia: PLAN: RECOMMENDATIONS: 1. Obtain EEG and MRI 2. Defer to hospitalist on neurology consult 3. Wean pressors as tolerated 4. Obtain echocardiogram 5. Continue cardiopulmonary support 6. Attempt to avoid sedation if possible IMPRESSIONS: 1. Acute cardiopulmonary arrest of unclear etiology Unclear etiology at this time. Echocardiogram has been ordered for evaluation. Patient did have significant acidosis on presentation, but this can be seen in any cause of acute arrest. Unfortunately, targeted temperature management is not available. Window for its use is closed at this point. 2. Possible anoxic encephalopathy Patient may have had up to 30 minutes of pulseless activity. Patient appears to be neurologically devastated that this time. Other possible etiologies would be status epilepticus. Patient has had some intermittent what appears to be myoclonic jerking of the face. EEG and MRI will be ordered. Defer to hospitalist on timing of neurologist evaluation. 3. Acute kidney injury Clinical suspicion that this is secondary to the arrest. Prerenal etiology would be suspected for now. Will monitor urine output. Baseline creatinine appears to be about 0.8 and presentation creatinine of 1.09. If this is related to #1, anticipate improvement with control of blood pressure. 4. Obstructive sleep apnea/advanced age/depression/hypercholesterolemia Complicates care, management, recovery and prognosis. Patient currently intubated so CPAP not necessary. Hold home medications for now TIME: 40 minutes critical care time spent addressing patient's acute cardiopulmonary arrest, possible anoxic encephalopathy, acute kidney injury, review of all data and collaboration with care team (7 AM to 8:45 AM) HPI Consult Data Date of Consult: 12/15/20 HPI Narrative HPI Narrative: BRINDA CORRALES is a 80 F, with past medical history listed below, who presents to [facility] on 12/15/2020 secondary to a reported cardiopulmonary arrest that was witnessed. Patient reportedly was of her usual health yesterday, but was noted by her to sit up in bed and fall to the floor. Patient's reported that he was in the bathroom and had come back to bed when she abruptly awoke, made a harsh noise and then fell to the ground. The patient's thought that she was not breathing, so he initiated CPR. He did admit that she was not in a good position and he had stopped CPR to call for help. Patient's reports that he reinitiated CPR until EMS arrived. Patient believes that the entire episode could not have been more than 30 minutes. EMS reportedly arrived and gave 1 round of epinephrine and had a pulse. Patient did receive an eye gel for an airway and was transported to the emergency room for further evaluation. Initially in the ER, patient was a STEMI team. Patient was seen by cardiology and this was not thought to be related to an ST elevation ID, so patient was not taken to the Industrial Relations Analyst. Vitals on presentation showed a tachycardia of 134 bpm, hypotension 84/64 and 95% saturation with an Ambu bag. Patient was emergently intubated. Patient was given aspirin. Patient did receive fluid boluses secondary to hypotension, but was ultimately started on Levophed. CT of the head was unremarkable. Patient reportedly has had pupillary response, but otherwise little neurologic activity has been noted. Laboratory data in the ER showed a normal CBC, hypokalemia of 3 and elevated glucose of 261. Initial troponins were negative. Chest x-ray did show bilateral alveolar infiltrates. Since being in the intensive care unit, nursing reports patient's pupils are more brisk, but no spontaneous movement has been noted. Patient has had some facial twitching that was concerning for seizures, so she has been given 2 mg of Ativan. Otherwise, patient is not currently on any sedation and has no spontaneous movements. No posturing has been noted. Did discuss with patient's and daughter at the bedside to obtain further history. Patient is relatively healthy. Patient only takes a couple of medications and does have a history of obstructive sleep apnea. Per the family's report, she was of her usual health prior to this event. No additional information is noted at this time. [facility] Medical History (Updated 12/15/20 @ 08:[address] Gary Henry MD) Abdominal pain Arthritis Bacterial colitis Diarrhea Fatigue Hyperlipidemia Sleep apnea Home Medications sertraline 50 mg tablet 50 mg PO DAILY 01/27/20 [History Last Taken Unknown] simvastatin 20 mg tablet 20 mg PO QHS 01/27/20 [History Last Taken Unknown] Allergy/AdvReac Type Severity Reaction Status Date / Time No Known Allergies Allergy Verified 12/15/20 03:18 Surgical History History of arthroscopic knee surgery History of carpal tunnel release of both wrists History of colonoscopy (~2012) Social History Smoking Status: Unknown if ever smoked alcohol intake: current alcohol intake frequency: a few times a month substance use type: does not use ROS Review of Systems ROS Unobtainable: due to endotracheal tube and due to mental status Physical Exam Const no apparent distress General Appearance: well developed, intubated and patient mechanically ventilated; Negative for in distress, ill appearing or diaphoretic Orientation / Consciousness: comatose Exam Limitations: altered mental status HEENT normocephalic, head/scalp atraumatic and moist oral mucous membranes Eyes PERRL Eyes Narrative: Eyes deviated caudally bilaterally. Scleral injection noted. Neck no lymphadenopathy Neck Narrative: No meningismus noted Chest inspection of chest normal Resp normal respiratory effort and no use of accessory muscles Effort and Inspection: able to speak in complete sentences Auscultation: clear to auscultation bilaterally; Negative for rales, rhonchi or wheezes Percussion: Negative for dullness Cardio regular rate, regular rhythm, S1 normal heart sound, S2 normal heart sound, no murmurs, no rub and no gallops GI normal to inspection, nondistended, normoactive bowel sounds Extremity no clubbing, cyanosis or edema Skin no rashes or lesions noted Neuro Skyler Coma Scale: document GCS findings None None None 3 Sensorium / Orientation: obtunded Meningeal Signs: no meningeal signs Psych cooperative and affect normal Lab / Micro Data Result Diagrams: 12/15/20 07:10 12/15/20 02:50 Labs: Laboratory Results - last 24 hr 12/15/20 02:50: WBC 8.1, RBC 4.41, Hgb 13.2, Hct 43.0, MCV 97.5, MCH 29.9, MCHC 30.7 L, RDW Std Deviation 46.4 H, RDW Coeff of Addison 12.9, Plt Count 218, MPV 10.1, Immature Gran % (Auto) 1.700 H, Neut % (Auto) 22.6 L, Lymph % (Auto) 71.1 H, Throckmorton % (Auto) 4.1, Eos % (Auto) 0.0, Baso % (Auto) 0.5, Absolute Neuts (auto) 1.8 L, Absolute Lymphs (auto) 5.75 H, Nucleated RBC % 0.2, Differential Comment SCANNED 12/15/20 02:50: Sodium 144, Potassium 3.0 L, Chloride 108 H, Carbon Dioxide 24.0, Anion Gap 12, BUN 16, Creatinine 1.09 H, Estim Creat Clear Calc 41.36, Est GFR (MDRD) Af Amer 62, Est GFR (MDRD) Non-Af 52 L, BUN/Creatinine Ratio 14.7, Glucose 261 H, Calcium 8.8, Troponin I High Sens 13 12/15/20 02:50: Magnesium 2.7 H 12/15/20 03:14: APTT > 250.0 H* 12/15/20 03:14: PT 15.2 H, INR 1.3 12/15/20 04:00: APTT 147.9 H* 12/15/20 06:15: Phosphorus Cancelled 12/15/20 06:15: WBC Cancelled, Corrected WBC Cancelled, RBC Cancelled, Hgb Cancelled, Hct Cancelled, MCV Cancelled, MCH Cancelled, MCHC Cancelled, RDW Std Deviation Cancelled, RDW Coeff of Addison Cancelled, Plt Count Cancelled, MPV C ancelled, Immature Gran % (Auto) Cancelled, Neut % (Auto) Cancelled, Lymph % (Auto) Cancelled, [place] % (Auto) Cancelled, Eos % (Auto) Cancelled, Baso % (Auto) Cancelled, Absolute Neuts (auto) Cancelled, Absolute Lymphs (auto) Cancelled, Total Counted Cancelled, Neutrophils % (Manual) Cancelled, Band Neutrophils % Cancelled, Lymphocytes % (Manual) Cancelled, Monocytes % (Manual) Cancelled, Eosinophils % (Manual) Cancelled, Basophils % (Manual) Cancelled, Metamyelocytes % Cancelled, Myelocytes % Cancelled, Promyelocytes % Cancelled, Blast Cells % Cancelled, Plasma Cell % (Manual) Cancelled, Other Cells % Cancelled, Nucleated RBC % Cancelled, Nucleated RBCs/100 WBC Cancelled, Differential Comment Cancelled, Diff Path Review Cancelled, Hypersegmented Neuts Cancelled, Atypical Lymphocytes Cancelled, Reactive Lymphocytes Cancelled, Smudge Cells Cancelled, Toxic Granulation Cancelled, Toxic Vacuolation Cancelled, Dohle Bodies Cancelled, Vilma Rods Cancelled, Platelet Estimate Cancelled, Plt Morphology Comment Cancelled, RBC Morphology Cancelled, Polychromasia Cancelled, Hypochromasia Cancelled, Poikilocytosis Cancelled, Basophilic Stippling Cancelled, Anisocytosis Cancelled, Microcytosis Cancelled, Macrocytosis Cancelled, Spherocytes Cancelled, Sickle Cells Cancelled, Target Cells Cancell ed, Tear Drop Cells Cancelled, Ovalocytes Cancelled, Stomatocytes Cancelled, [place] Bodies Cancelled, [place] Cells Cancelled, Bite Cells Cancelled, Crenated Cell Cancelled, Acanthocytes (Spur) Cancelled, Rouleaux Cancelled, Schistocytes Cancelled 12/15/20 06:15: APTT Cancelled 12/15/20 07:10: WBC 13.2 H, RBC 4.35, Hgb 13.0, Hct 41.6, MCV 95.6, MCH 29.9, MCHC 31.3 L, RDW Std Deviation 45.7 H, RDW Coeff of Addison 12.9, Plt Count 239, MPV 9.9, Immature Gran % (Auto) 0.500, Neut % (Auto) 82.7 H, Lymph % (Auto) 9.8 L, [place]morton % (Auto) 6.7, Eos % (Auto) 0.0, Baso % (Auto) 0.3, Absolute Neuts (auto) 10.9 H, Absolute Lymphs (auto) 1.29, Nucleated RBC % 0 12/15/20 07:10: APTT 29.2 12/15/20 07:10: Phosphorus 2.2 L ABG Data ABG results: ABG 12/15/20 04:23 Specimen Type ART Sample Site L Radial pH 7.28 L Bicarbonate Actual 20.0 L Total CO2 21 Base Excess -7 L O2 Saturation 94 L O2 % 60 ABG pCO2 42.2 ABG pO2 79 James Test Positive Respiration Rate 14 O2 Delivery Device Adult Vent Vent Mode AC Tidal Volume 450 POC PEEP 5 Radiology Impression Chest X-Ray 12/15/20 03:10 IMPRESSION: Cannot exclude diffuse interstitial pneumonitis versus edema. Lines and tubes as described. Recommend advancing the nasogastric tube approximately 7-10 cm Electronically Signed: Paige Prieto MD at 3:23 EDT , Service support , Brain CT 12/15/20 03:16 IMPRESSION: Chronic changes as described. No acute intracranial hemorrhage or space-occupying lesion. Electronically Signed: Paige Prieto MD at 3:46 EDT , Service support , Charges/Coding Procedures Hospitalists Procedures: [id number] [facility] Care 1st Hr
[2020-12-15 09:28] LABS: Troponin-I HS 2185 pg/mL (3.0-54.0)
--- NOTE | 2020-12-15 09:40 | CASEMGMT ---
RN CM Face to Face with patient for initial transition planning/care coordination assessment. RN CM introduced self and role at [facility]. Patient lying in bed, currently on vent, family at bedside. willing to participate in assessment and is able to answer all questions appropriately. Care providers, pharmacy, and demographics verified. states he has no further needs or concerns at this time. CM to follow for discharge planning needs that may arise. PCP: Estefany Specialists: Julian, control chemist Preferred Pharmacy: [facility] Insurance: [employer] Prescription Benefit: yes Living Will/HPOA: yes, tameka Bernardo HPOA LNOK: , daughter Living Arrangements: Patient lives with in a 2 story home with bed and bath on first floor. Patient is normally independent at home. Transportation: self/ DME/HHC: Patient has raised toilet and cpap at home. No previous HHC or SNF Disposition Plan: TBD by course of treatment and progress with therapy. Karmen BEST, RN, CM
--- NOTE | 2020-12-15 10:20 | PN.HOSP_ITS ---
Subjective Subjective Patient seen and examined. She was admitted for out of hospital cardiopulmonary arrest, for which she attained ROSC after her started CPR and the EMS was called. She was given a dose of epinephrine. On arrival in the ED, STEMI alert was called but this was canceled after cardiology reviewed and did not th ink it was a STEMI. She was emergently intubated. She was started on levophed for hypotension which didnt respond to fluid boluses. CT of the head was negative. Patient's daughter and were by her bedside. She is unresponsive and was about to have an echo at time of review. She was noted to have some facial twitching, and received ativan due to concerns about seizures. MRi and EEG ordered this morning. Objective Data Objective Data Vital Signs: Vital Signs Temp Pulse Resp BP Pulse Ox 95.8 F L 78 14 69/58 L 100 12/15/20 08:00 12/15/20 09:00 12/15/20 09:00 12/15/20 09:15 12/15/20 09:00 Oxygen Flow Rate (L/min) 60 Oxygen Delivery Method Mechanical Ventilator Weight: 143 lb 1.28 oz Body Mass Index (BMI) 25.3 Intake & Output: Intake and Output for Last 24 Hours 12/13/20 12/14/20 12/15/20 23:59 23:59 23:59 Intake Total 2651.89 / 2651.89 Balance 2651.89 / 2651.89 Lab / Micro Data Result Diagrams: 12/15/20 18:03 12/15/20 18:03 Labs: Laboratory Results - last 24 hr 12/15/20 02:50: WBC 8.1, RBC 4.41, Hgb 13.2, Hct 43.0, MCV 97.5, MCH 29.9, MCHC 30.7 L, RDW Std Deviation 46.4 H, RDW Coeff of Addison 12.9, Plt Count 218, MPV 10.1, Immature Gran % (Auto) 1.700 H, Neut % (Auto) 22.6 L, Lymph % (Auto) 71.1 H, Yell % (Auto) 4.1, Eos % (Auto) 0.0, Baso % (Auto) 0.5, Absolute Neuts (auto) 1.8 L, Absolute Lymphs (auto) 5.75 H, Nucleated RBC % 0.2, Differential Comment SCANNED 12/15/20 02:50: Sodium 144, Potassium 3.0 L, Chloride 108 H, Carbon Dioxide 24.0, Anion Gap 12, BUN 16, Creatinine 1.09 H, Estim Creat Clear Calc 41.36, Est GFR (MDRD) Af Amer 62, Est GFR (MDRD) Non-Af 52 L, BUN/Creatinine Ratio 14.7, Glucose 261 H, Calcium 8.8, Troponin I High Sens 13 12/15/20 02:50: Magnesium 2.7 H 12/15/20 03:14: APTT > 250.0 H* 12/15/20 03:14: PT 15.2 H, INR 1.3 12/15/20 04:00: APTT 147.9 H* 12/15/20 06:15: Phosphorus Cancelled 12/15/20 06:15: WBC Cancelled, Corrected WBC Cancelled, RBC Cancelled, Hgb Cancelled, Hct Cancelled, MCV Cancelled, MCH Cancelled, MCHC Cancelled, RDW Std Deviation Cancelled, RDW Coeff of Addison Cancelled, Plt Count Cancelled, MPV Cancelled, Immature Gran % (Auto) Cancelled, Neut % (Auto) Cancelled, Lymph % (Auto) Cancelled, Yell % (Auto) Cancelled, Eos % (Auto) Cancelled, Baso % (Auto) Cancelled, Absolute Neuts (auto) Cancelled, Absolute Lymphs (auto) Cancelled, Total Counted Cancelled, Neutrophils % (Manual) Cancelled, Band Neutrophils % Cancelled, Lymphocytes % (Manual) Cancelled, Monocytes % (Manual) Cancelled, Eosinophils % (Manual) Cancelled, Basophils % (Manual) Cancelled, Metamyelocytes % Cancelled, Myelocytes % Cancelled, Promyelocytes % Cancelled, Blast Cells % Cancelled, Plasma Cell % (Manual) Cancelled, Other Cells % Cancelled, Nucleated RBC % Cancelled, Nucleated RBCs/100 WBC Cancelled, Differential Comment Cancelled, Diff Path Review Cancelled, Hypersegmented Neuts Cancelled, Atypical Lymphocytes Cancelled, Reactive Lymphocytes Cancelled, Smudge Cells Cancelled, Toxic Granulation Cancelled, Toxic Vacuolation Cancelled, Dohle Bodies Cancelled, Vilma Rods Cancelled, Platelet Estimate Cancelled, Plt Morphology Comment Cancelled, RBC Morphology Cancelled, Polychromasia Cancelled, Hypochromasia Cancelled, Poikilocytosis Cancelled, Basophilic Stippling Cancelled, Anisocytosis Cancelled, Microcytosis Cancelled, Macrocytosis Cancelled, Spherocytes Cancelled, Sickle Cells Cancelled, Target Cells Cancelled, Tear Drop Cells Cancelled, Ovalocytes Cancelled, Stomatocytes Cancelled, [place] Bodies Cancelled, Franci Cells Cancelled, Bite Cells Cancelled, Crenated Cell Cancelled, Acanthocytes (Spur) Cancelled, Rouleaux Cancelled, Schistocytes Cancelled 12/15/20 06:15: APTT Cancelled 12/15/20 07:10: WBC 13.2 H, RBC 4.35, Hgb 13.0, Hct 41.6, MCV 95.6, MCH 29.9, MCHC 31.3 L, RDW Std Deviation 45.7 H, RDW Coeff of Addison 12.9, Plt Count 239, MPV 9.9, Immature Gran % (Auto) 0.500, Neut % (Auto) 82.7 H, Lymph % (Auto) 9.8 L, Yell % (Auto) 6.7, Eos % (Auto) 0.0, Baso % (Auto) 0.3, Absolute Neuts (auto) 10.9 H, Absolute Lymphs (auto) 1.29, Nucleated RBC % 0 12/15/20 07:10: APTT 29.2 12/15/20 07:10: Phosphorus 2.2 L 12/15/20 08:30: Troponin I High Sens 2185 H* ABG Data ABG results: ABG 12/15/20 04:23 Specimen Type ART Sample Site L Radial pH 7.28 L Bicarbonate Actual 20.0 L Total CO2 21 Base Excess -7 L O2 Saturation 94 L O2 % 60 ABG pCO2 42.2 ABG pO2 79 James Test Positive Respiration Rate 14 O2 Delivery Device Adult Vent Vent Mode AC Tidal Volume 450 POC PEEP 5 Radiography Diagnostic Testing: Radiology Impression Chest X-Ray 12/15/20 03:10 IMPRESSION: Cannot exclude diffuse interstitial pneumonitis versus edema. Lines and tubes as described. Recommend advancing the nasogastric tube approximately 7-10 cm Electronically Signed: Paige Prieto MD at 3:23 EDT , Service support , Brain CT 12/15/20 03:16 IMPRESSION: Chronic changes as described. No acute intracranial hemorrhage or space-occupying lesion. Electronically Signed: Paige Prieto MD at 3:46 EDT , Service support , Physical Exam Const Constitutional Narrative: intubated, RASS score is -4 even off sedation. HEENT head/scalp atraumatic Head and Scalp: normocephalic Resp Resp Narrative: diminished breath sounds bibasally, no wheezes or crackles. Int ubated, on FiO2 of 100% Cardio regular rate, regular rhythm, S1 normal heart sound and S2 normal heart sound GI normal to inspection, nondistended, normoactive bowel sounds, soft to palpation, non-tender and non-distended Extremity normal to inspection Peripheral Pulses: Yes pulses 2+ throughout Neuro Neuro Narrative: intubated, RASS score is -4 even off sedation, visible twitching of extraocular muscles of left eye Assessment & Plan Assessment/Plan (1) Cardiopulmonary arrest with successful resuscitation: (2) Acute respiratory failure with hypoxia: PLAN: #s/p Acute cardiopulmonary arrest with successful ROSC * currently intubated * critical care on board * was initially thought to be due to STEMI, and a stemi alert was called, but this was cancelled as cardiology didnt think it was a stemi * currently on heparin drip due to concerns about a possible PE * 2D echo pending * cardiology also on board * #Acute hypoxic respiratory failure due to cardiac arrest * currently intubated, not sedated * 2D echo pending * critical care on board * titrate oxygen to maintain sats >90% * #? seizures * patient noted to be having twitching of her left eye * given ativan due to concern for seizures * EEG and MRI pending * will consult neurology * CT of the brain was negative #History of sleep apnea * currently intubated. * * DVT prophylaxis: on heparin drip GI prophylaxis: on famotidine Charges/Coding Visit Charges Inpatient E&M: 11781 [facility] L3
--- NOTE | 2020-12-15 10:49 | TELEMED_ITS ---
SOC Telemed has confirmed receipt of a request for visit. This document confirms receipt of the order initiating the consult. To find the results of the consultation, please view the patient's reports for the scanned Telemed Consult.
[2020-12-15] MEDS: Famotidine 20 MG Tablet GT (11:15)
[2020-12-15] MEDS: Sertraline 50 MG Tablet PO (11:17)
[2020-12-15] MEDS: Chlorhexidine 15 ML PO ×2 (11:49→21:26)
[2020-12-15 13:00] LABS: Troponin-I HS 1971 pg/mL (3.0-54.0)
[2020-12-15 14:51] LABS: Partial Thromboplast Time 123.6 Seconds (24.1-36.2)
[2020-12-15 15:13] LABS: Troponin-I HS 1975 pg/mL (3.0-54.0)
--- NOTE | 2020-12-15 16:05 | CASEMGMT ---
Social Work Note [employer] called on pt. SW responded. Pt's son present at [facility]. SW provided support to pt's son. Pt's son denied additional needs at this time. Pt's and daughter are on way to [facility]. SW asked RN to call ED SW once pt's additional family members arrive to [facility] if they need a SW. HCPOA is on file for pt naming pt's Esa Ruiz as HCPOA. Karmen Goyal GREEN CHAIN OFFBEARER, ELECTRIC DRILL OPERATOR
[2020-12-15 16:11] LABS: Absolute Lymphocyte Count 2.82 X10^3/uL (0.83-4.51); Absolute Neutrophil Count 10.4 X10^3/uL (2.0-7.7); Basophil# 0.02 X10^3/uL; Basophil% 0.1 % (0-1); Hematocrit 30.8 % (37-47); Hemoglobin 10.1 g/dL (12.0-15.0); Lymphocyte # 2.82 X10^3/ul (0.83-4.51); Lymphocyte % 19.8 % (19-41); Mean Corp Hgb Conc 32.8 g/dL (32-36); Mean Corpuscular Hgb 30.2 pg (27.0-32.0); Mean Corpuscular Volume 92.2 fL (81-99); Mean Platelet Vol. 10.4 fl (6.2-12.0); Monocyte# 0.91 X10^3/uL; Monocyte% 6.4 % (0-10); NRBC Flagged by Analyzer 0.1 % (0-5); Neutrophil # 10.38 X10^3/uL (2.7-7.7); Neutrophil % 73.1 % (47-70); Platelet Count 130 K/mm3 (150-450); RBC Distribution Width CV 13.1 % (11.6-14.6); Red Blood Count 3.34 M/mm3 (4.2-5.4); White Blood Count 14.2 K/mm3 (4.4-11.0)
--- NOTE | 2020-12-15 16:18 | PCM.CONS.C ---
Documented by User: JAY Izquierdo 12/15/20 17:25 Assessment & Plan Assessment/Plan (1) Cardiopulmonary arrest with successful resuscitation: (2) Acute respiratory failure with hypoxia: (3) Cardiomyopathy: PLAN: At this time patient is not a candidate for a heart catheterization. Her prognosis is guarded If her condition changes in the future may reconsider cardiac testing At this time will defer patient's care to hospitalist and purchasing director, if patient condition improves would be happy to assist with care of patient. Did have discussion with family regarding code status, they would like to wait until her EEG results are back HPI Consult Data Date of Consult: 12/15/20 HPI Narrative HPI Narrative: BRINDA CORRALES, is a 80 F who presented to the emergency room early this morning cardiopulmonary arrest. According to the emergency room note she woke up clutching her chest and then fell out of bed and unresponsive. called 911, they directed him to start CPR prior to paramedics arrival. Upon arrival EMS took over compressions and patient was noted to be in PEA. They did perform ACLS with 1 round of epinephrine her airway was secured. It was felt that patient had a perfusing pulse and rhythm. Upon arrival to the emergency room patient was intubated. EKG did demonstrate sinus tachycardia with left anterior fascicular block. No acute STEMI at this time. 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 Patient was then transferred to the ICU. Patient did receive IV fluids for hypotension as well as being started on Levophed. She did have a CT of her head which did not demonstrate any acute hemorrhage. She did have an echocardiogram which demonstrated an ejection fraction of 10 to 15%. Global left ventricular hypokinesis. Mild mitral regurgitation, mild aortic insufficiency, moderate tricuspid regurg agitation. No previous echocardiogram to compare to. Troponin initially was 13, serial troponins have elevated, they are 2185, 1971, 1974. Upon admission she was noted to be hypokalemic. Potassium was 3. BERNIE LARA was called at . She did have ventricular tachycardia. ROSC was able to be obtained. She remains intubated. [facility] Medical History (Updated 12/15/20 @ 16:36 by Cheryl THOMPSON PA) Abdominal pain Arthritis Bacterial colitis Cardiomyopathy Diarrhea Fatigue Hyperlipidemia Sleep apnea Home Medications sertraline 50 mg tablet 50 mg PO DAILY 01/27/20 [History Last Taken Unknown] simvastatin 20 mg tablet 20 mg PO QHS 01/27/20 [History Last Taken Unknown] Allergy/AdvReac Type Severity Reaction Status Date / Time No Known Allergies Allergy Verified 12/15/20 03:18 Surgical History History of arthroscopic knee surgery History of carpal tunnel release of both wrists History of colonoscopy (~2012) Social History Smoking Status: Unknown if ever smoked alcohol intake: current alcohol intake frequency: a few times a month substance use type: does not use ROS Review of Systems ROS Unobtainable: due to endotracheal tube Physical Exam Narrative Intubated on mechanical ventilation HEENT normocephalic and head/scalp atraumatic Cardio regular rate, regular rhythm, no murmurs, no rub and no gallops GI normal to inspection, nondistended, normoactive bowel sounds Objective Data Vital Signs: Vital Signs Temp Pulse Resp BP Pulse Ox 97.7 F L 72 14 100/80 97 12/15/20 13:00 12/15/20 14:00 12/15/20 14:00 12/15/20 14:00 12/15/20 14:00 Oxygen Flow Rate (L/min) 60 Oxygen Delivery Method Mechanical Ventilator Weight: 143 lb 1.28 oz Body Mass Index (BMI) 25.3 Intake & Output: Intake and Output for Last 24 Hours 12/13/20 12/14/20 12/15/20 23:59 23:59 23:59 Intake Total 3594.36 / 3594.36 Output Total 300 / 300 Balance 3294.36 / 3294.36 Lab / Micro Data Result Diagrams: 12/15/20 18:03 12/15/20 16:05 Labs: Laboratory Results - last 24 hr 12/15/20 02:50: WBC 8.1, RBC 4.41, Hgb 13.2, Hct 43.0, MCV 97.5, MCH 29.9, MCHC 30.7 L, RDW Std Deviation 46.4 H, RDW Coeff of Addison 12.9, Plt Count 218, MPV 10.1, Immature Gran % (Auto) 1.700 H, Neut % (Auto) 22.6 L, Lymph % (Auto) 71.1 H, [place] % (Auto) 4.1, Eos % (Auto) 0.0, Baso % (Auto) 0.5, Absolute Neuts (auto) 1.8 L, Absolute Lymphs (auto) 5.75 H, Nucleated RBC % 0.2, Differential Comment SCANNED 12/15/20 02:50: Sodium 144, Potassium 3.0 L, Chloride 108 H, Carbon Dioxide 24.0, Anion Gap 12, BUN 16, Creatinine 1.09 H, Estim Creat Clear Calc 41.36, Est GFR (MDRD) Af Amer 62, Est GFR (MDRD) Non-Af 52 L, BUN/Creatinine Ratio 14.7, Glucose 261 H, Calcium 8.8, Troponin I High Sens 13 12/15/20 02:50: Magnesium 2.7 H 12/15/20 03:14: APTT > 250.0 H* 12/15/20 03:14: PT 15.2 H, INR 1.3 12/15/20 04:00: APTT 147.9 H* 12/15/20 06:15: Phosphorus Cancelled 12/15/20 06:15: WBC Cancelled, Corrected WBC Cancelled, RBC Cancelled, Hgb Cancelled, Hct Cancelled, MCV Cancelled, MCH Cancelled, MCHC Cancelled, RDW Std Deviation Cancelled, RDW Coeff of Addison Cancelled, Plt Count Cancelled, MPV Cancelled, Immature Gran % (Auto) Cancelled, Neut % (Auto) Cancelled, Lymph % (Auto) Cancelled, [place] % (Auto) Cancelled, Eos % (Auto) Cancelled, Baso % (Auto) Cancelled, Absolute Neuts (auto) Cancelled, Absolute Lymphs (auto) Cancelled, Total Counted Cancelled, Neutrophils % (Manual) Cancelled, Band Neutrophils % Cancelled, Lymphocytes % (Manual) Cancelled, Monocytes % (Manual) Cancelled, Eosinophils % (Manual) Cancelled, Basophils % (Manual) Cancelled, Metamyelocytes % Cancelled, Myelocytes % Cancelled, Promyelocytes % Cancelled, Blast Cells % Cancelled, Plasma Cell % (Manual) Cancelled, Other Cells % Cancelled, Nucleated RBC % Cancelled, Nucleated RBCs/100 WBC Cancelled, Differential Comment Cancelled, Diff Path Review Cancelled, Hypersegmented Neuts Cancelled, Atypical Lymphocytes Cancelled, Reactive Lymphocytes Cancelled, Smudge Cells Cancelled, Toxic Granulation Cancelled, Toxic Vacuolation Cancelled, Dohle Bodies Cancelled, Vilma Rods Cancelled, Platelet Estimate Cancelled, Plt Morphology Comment Cancelled, RBC Morphology Cancelled, Polychromasia Cancelled, Hypochromasia Cancelled, Poikilocytosis Cancelled, Basophilic Stippling Cancelled, Anisocytosis Cancelled, Microcytosis Cancelled, Macrocytosis Cancelled, Spherocytes Cancelled, Sickle Cells Cancelled, Target Cells Cancelled, Tear Drop Cells Cancelled, Ovalocytes Cancelled, Stomatocytes Cancelled, Rosales-Cheraw Bodies Cancelled, Franci Cells Cancelled, Bite Cells Cancelled, Crenated Cell Cancelled, Acanthocytes (Spur) Cancelled, Rouleaux Cancelled, Schistocytes Cancelled 12/15/20 06:15: APTT Cancelled 12/15/20 07:10: WBC 13.2 H, RBC 4.35, Hgb 13.0, Hct 41.6, MCV 95.6, MCH 29.9, MCHC 31.3 L, RDW Std Deviation 45.7 H, RDW Coeff of Addison 12.9, Plt Count 239, MPV 9.9, Immature Gran % (Auto) 0.500, Neut % (Auto) 82.7 H, Lymph % (Auto) 9.8 L, [place] % (Auto) 6.7, Eos % (Auto) 0.0, Baso % (Auto) 0.3, Absolute Neuts (auto) 10.9 H, Absolute Lymphs (auto) 1.29, Nucleated RBC % 0 12/15/20 07:10: APTT 29.2 12/15/20 07:10: Phosphorus 2.2 L 12/15/20 08:30: Troponin I High Sens 2185 H* 12/15/20 12:30: Troponin I High Sens 1971 H* 12/15/20 14:30: Troponin I High Sens 1975 H* 12/15/20 14:30: APTT 123.6 H* 12/15/20 16:05: WBC 14.2 H, RBC 3.34 L, Hgb 10.1 L, Hct 30.8 L, MCV 92.2, MCH 30.2, MCHC 32.8, RDW Std Deviation 44.0 H, RDW Coeff of Addison 13.1, Plt Count 130 L, MPV 10.4, Immature Gran % (Auto) 0.600, Neut % (Auto) 73.1 H, Lymph % (Auto) 19.8, [place] % (Auto) 6.4, Eos % (Auto) 0.0, Baso % (Auto) 0.1, Absolute Neuts (auto) 10.4 H, Absolute Lymphs (auto) 2.82, Nucleated RBC % 0.1 ABG Data ABG results: ABG 12/15/20 04:23 Specimen Type ART Sample Site L Radial pH 7.28 L Bicarbonate Actual 20.0 L Total CO2 21 Base Excess -7 L O2 Saturation 94 L O2 % 60 ABG pCO2 42.2 ABG pO2 79 James Test Positive Respiration Rate 14 O2 Delivery Device Adult Vent Vent Mode AC Tidal Volume 450 POC PEEP 5 Cardiology Labs/Tests 12/15/20 02:50: WBC 8.1, RBC 4.41, Hgb 13.2, Hct 43.0, MCV 97.5, MCH 29.9, MCHC 30.7 L, Plt Count 218, MPV 10.1, Immature Gran % (Auto) 1.700 H, Neut % (Auto) 22.6 L, Lymph % (Auto) 71.1 H, [place] % (Auto) 4.1, Eos % (Auto) 0.0, Baso % (Auto) 0.5, Absolute Neuts (auto) 1.8 L, Nucleated RBC % 0.2 12/15/20 02:50: Sodium 144, Potassium 3.0 L, Chloride 108 H, Carbon Dioxide 24.0, Anion Gap 12, BUN 16, Creatinine 1.09 H, Est GFR (MDRD) Af Amer 62, Est GFR (MDRD) Non-Af 52 L, BUN/Creatinine Ratio 14.7, Glucose 261 H, Calcium 8.8 12/15/20 02:50: Magnesium 2.7 H 12/15/20 03:14: APTT > 250.0 H* 12/15/20 03:14: PT 15.2 H, INR 1.3 12/15/20 04:00: APTT 147.9 H* 12/15/20 04:23: pH 7.28 L, Bicarbonate Actual 20.0 L, Base Excess -7 L, O2 Saturation 94 L, ABG pCO2 42.2, ABG pO2 79, James Test Positive 12/15/20 06:15: Phosphorus Cancelled 12/15/20 06:15: WBC Cancelled, Corrected WBC Cancelled, RBC Cancelled, Hgb Cancelled, Hct Cancelled, MCV Cancelled, MCH Cancelled, MCHC Cancelled, Plt Count Cancelled, MPV Cancelled, Immature Gran % (Auto) Cancelled, Neut % (Auto) Cancelled, Lymph % (Auto) Cancelled, [place] % (Auto) Cancelled, Eos % (Auto) Cancelled, Baso % (Auto) Cancelled, Absolute Neuts (auto) Cancelled, Total Counted Cancelled, Neutrophils % (Manual) Cancelled, Band Neutrophils % Cancelled, Lymphocytes % (Manual) Cancelled, Monocytes % (Manual) Cancelled, Eosinophils % (Manual) Cancelled, Basophils % (Manual) Cancelled, Metamyelocytes % Cancelled, Myelocytes % Cancelled, Promyelocytes % Cancelled, Blast Cells % Cancelled, Plasma Cell % (Manual) Cancelled, Other Cells % Cancelled, Nucleated RBC % Cancelled 12/15/20 06:15: APTT Cancelled 12/15/20 07:10: WBC 13.2 H, RBC 4.35, Hgb 13.0, Hct 41.6, MCV 95.6, MCH 29.9, MCHC 31.3 L, Plt Count 239, MPV 9.9, Immature Gran % (Auto) 0.500, Neut % (Auto) 82.7 H, Lymph % (Auto) 9.8 L, [place] % (Auto) 6.7, Eos % (Auto) 0.0, Baso % (Auto) 0.3, Absolute Neuts (auto) 10.9 H, Nucleated RBC % 0 12/15/20 07:10: APTT 29.2 12/15/20 07:10: Phosphorus 2.2 L 12/15/20 14:30: APTT 123.6 H* 12/15/20 16:05: WBC 14.2 H, RBC 3.34 L, Hgb 10.1 L, Hct 30.8 L, MCV 92.2, MCH 30.2, MCHC 32.8, Plt Count 130 L, MPV 10.4, Immature Gran % (Auto) 0.600, Neut % (Auto) 73.1 H, Lymph % (Auto) 19.8, [place] % (Auto) 6.4, Eos % (Auto) 0.0, Baso % (Auto) 0.1, Absolute Neuts (auto) 10.4 H, Nucleated RBC % 0.1 Rhythm: EKG: ECHO: 12/15/20: The estimated ejection fraction is EF 10-15 %. Severe LV systolic function Global LV Hypokinesia Mild MR Mild AI Moderate TR No prior Echo to compare Stress Test: Cardiac Cath: PCI: CT Surgery: Holter monitor: EPS: PPM: CXR: 12/15/20: Cannot exclude diffuse interstitial pneumonitis versus edema. Lines and tubes as described. Recommend advancing the nasogastric tube approximately 7-[address] Scan: Radiography Diagnostic Testing: Radiology Impression Chest X-Ray 12/15/20 03:10 IMPRESSION: Cannot exclude diffuse interstitial pneumonitis versus edema. Lines and tubes as described. Recommend advancing the nasogastric tube approximately 7-10 cm Electronically Signed: Paige Prieto MD at 3:23 EDT , Service support , Brain CT 12/15/20 03:16 IMPRESSION: Chronic changes as described. No acute intracranial hemorrhage or space-occupying lesion. Electronically Signed: Paige Prieto MD at 3:46 EDT , Service support , Echocardiogram 12/15/20 05:55 Interpretation Summary The estimated ejection fraction is EF 10-15 %. Severe LV systolic function Global LV Hypokinesia Mild MR Mild AI Moderate TR No prior Echo to compare Ordering Physician: Jorge Herrera Referring Physician: [place] Performed By: Romelia Ogden RDCS, RVT Documented by User: Dr. Suraj Washington MD 12/15/20 18:37 Assessment & Plan Assessment/Plan (1) Cardiopulmonary arrest with successful resuscitation: (2) Acute respiratory failure with hypoxia: (3) Cardiomyopathy: (4) Hyperlipidemia: PLAN: I independently evaluated this patient in the ER when she presented post cardiac arrest unresponsive with initial cardiac nurse specialist showing PEA, patient underwent evaluation with the echocardiogram which showed severe LV systolic dysfunction ejection fraction of 10-15% with severe global LV hypokinesia. I reviewed all the current evaluation which include the cardiac nurse specialist EKG current lab chest x-ray, patient evidently had coded again in the intensive care unit and she has been unresponsive Recommendation; 1. Continue current supportive treatment plan 2. Guarded prognosis. HPI Consult Data Date of Consult: 12/15/20 [facility] Medical History (Updated 12/15/20 @ 16:36 by Cheryl THOMPSON, PA) Abdominal pain Arthritis Bacterial colitis Cardiomyopathy Diarrhea Fatigue Hyperlipidemia Sleep apnea Home Medications sertraline 50 mg tablet 50 mg PO DAILY 01/27/20 [History Last Taken Unknown] simvastatin 20 mg tablet 20 mg PO QHS 01/27/20 [History Last Taken Unknown] Allergy/AdvReac Type Severity Reaction Status Date / Time No Known Allergies Allergy Verified 12/15/20 03:18 Surgical History History of arthroscopic knee surgery History of carpal tunnel release of both wrists History of colonoscopy (~2012) Social History Smoking Status: Unknown if ever smoked alcohol intake: current alcohol intake frequency: a few times a month substance use type: does not use Lab / Micro Data Result Diagrams: 12/15/20 18:03 12/15/20 16:05
[2020-12-15 16:33] LABS: ALB/GLOB Ratio 0.9 RATIO (0.9-2.4); AST(SGOT) 55 U/L (15-37); Alanine Aminotransfer ALT/SGPT 58 U/L (13-56); Albumin, Serum 1.6 g/dL (3.2-5.0); Alkaline Phosphatase 30 U/L (45-117); BUN 15 mg/dL (7-18); Chloride 124 mmol/L (98-107); Creatinine, Serum 0.44 mg/dL (0.55-1.02); EST Glomerular Filtration Rate 146 mL/min (>60); Est Glom Filt Rate - Afr Amer 177 mL/min (>60); Estimated Creatinine Clearance 38.35 ml/min; Globulin 1.7 g/dL (2.2-4.2); Glucose 123 mg/dL (74-106); Magnesium 1.2 mg/dL (1.6-2.6); Protein, Total 3.3 g/dL (6.4-8.2)
[2020-12-15 16:36] LABS: Calcium,Total < 5.0 mg/dL (8.5-10.1)
[2020-12-15 16:37] LABS: Sodium Level 177 mmol/L (136-145)
[2020-12-15 16:38] LABS: Carbon Dioxide > 45.0 mmol/L (21.0-32.0); Potassium 6.1 mmol/L (3.5-5.1)
--- NOTE | 2020-12-15 16:42 | CPS ---
Patient was already intubated.
[2020-12-15 16:51] LABS: Allen Test Positive; Base Excess -10 mmol/L (-2 to +2); Bicarbonate 18.3 mmol/L (22-26); Blood Gas Specimen Type ART; FI02 100; Mode AC; O2 Delivery Device Adult Vent; PEEP 8; PO2 59 mmHG (75-100); RR 14; SITE L Radial; SO2 82 % (95-99); Total Carbon Dioxide 20 mmol/L; Vt 450; pCO2 50.4 mmHg (35-45); pH 7.17 (7.35-7.45)
--- NOTE | 2020-12-15 16:53 | NURSING ---
Dr Henry updated. Orders received for pulmonary to increase the PEEP to 12. new med orders also received.
[2020-12-15 17:03] LABS: Phosphorus 8.3 mg/dL (2.5-4.9)
[2020-12-15 17:30] LABS: Bedside Glucose 179 mg/dL (70-110)
--- NOTE | 2020-12-15 17:37 | CB_ITS ---
Code Blue Report Code Blue Summary Code Blue Summary: Kristine davis was called at 15:48. Patient was in PEA. She was r esuscitated by ACLS protocol, and had 2 ampoules of bicarb, as well as 2mg of epi. Leveophed was increased to 10mcg and then eventually up to 50mcg. Patient was also shocked once after she went into ventricular tachycardia. ROSC was obtained at 16;00. Patient's son was in the room while CPR was ongoing. I spoke to patient's on the phone a sense that he was there next of kin and the person who take decisions for the patient. said he did not want to lose her and wanted us to continue everything for now until we could get to the hospital. Has been counseled that patient's prognosis was poor and she was likely to go into cardiac arrest again. expressed understanding about this.
[2020-12-15 18:13] LABS: Hematocrit 46.6 % (37-47); Hemoglobin 14.2 g/dL (12.0-15.0); Mean Corp Hgb Conc 30.5 g/dL (32-36); Mean Corpuscular Volume 98.5 fL (81-99); Mean Platelet Vol. 10.3 fl (6.2-12.0); Platelet Count 269 K/mm3 (150-450); RBC Distribution Width CV 13.2 % (11.6-14.6); RBC Distribution Width SD 47.5 fl (35.1-43.9); Red Blood Count 4.73 M/mm3 (4.2-5.4); White Blood Count 23.7 K/mm3 (4.4-11.0)
--- NOTE | 2020-12-15 18:40 | EKG12_ITS ---
Test Reason : CODE BLUE Blood Pressure : / mmHG Vent. Rate : 150 BPM Atrial Rate : 150 BPM P-R Int : 134 ms QRS Dur : 086 ms QT Int : 292 ms P-R-T Axes : 061 -52 095 degrees QTc Int : 461 ms Sinus tachycardia Left anterior fascicular block Septal infarct , age undetermined Abnormal ECG When compared with ECG of 15-DEC-2020 02:57, MANUAL COMPARISON REQUIRED, DATA IS UNCONFIRMED Confirmed by CATHIE HARGROVE, LORNA ([id number]), editorial manager ROBYN RAMOS ([id number]) on 12/19/2020 8:09:51 AM Referred By: Suraj Washington Confirmed By:LORNA BRAND MD
[2020-12-15 18:43] LABS: Anion Gap 11 (5-15); BUN 21 mg/dL (7-18); BUN/Creat Ratio 17.2 RATIO (10-20); Calcium,Total 7.8 mg/dL (8.5-10.1); Chloride 113 mmol/L (98-107); Creatinine, Serum 1.22 mg/dL (0.55-1.02); EST Glomerular Filtration Rate 45 mL/min (>60); Est Glom Filt Rate - Afr Amer 55 mL/min (>60); Estimated Creatinine Clearance 31.44 ml/min; Glucose 243 mg/dL (74-106); Magnesium 1.8 mg/dL (1.6-2.6); Phosphorus 6.7 mg/dL (2.5-4.9); Potassium 4.9 mmol/L (3.5-5.1); Sodium Level 145 mmol/L (136-145)
--- NOTE | 2020-12-15 19:44 | NURSING ---
Dr Henry updated on pt condition and new orders received.
[2020-12-15] MEDS: Acetaminophen 650 MG/20 ML UDC GT (20:42)
[2020-12-15] MEDS: Atorvastatin Calcium 10 MG Tablet PO (21:26)
[2020-12-15] MEDS: TITRATION PARAMETER CHANGE 1 EACH IV (23:39)
[2020-12-16] VITALS (56 sets, daily range): BP systolic 53–138; BP diastolic 38–94; PULSE 81–132; RESP 14–21; TEMP 36.1–38.7; O2SAT 91–100
[2020-12-16] MEDS: Propofol 10MG/Ml 1,000 MG/100 ML Bottle 3.9 MG CONT INF (00:34)
[2020-12-16 00:50] LABS: CPK Total, Creatine Kinase 853 U/L (26-192); Triglycerides 139 mg/dL
[2020-12-16 04:15] LABS: Partial Thromboplast Time 99.7 Seconds (24.1-36.2)
[2020-12-16 05:44] LABS: Absolute Lymphocyte Count 1.21 X10^3/uL (0.83-4.51); Basophil# 0.05 X10^3/uL; Basophil% 0.2 % (0-1); Hematocrit 44.6 % (37-47); Lymphocyte # 1.21 X10^3/ul (0.83-4.51); Lymphocyte % 5.6 % (19-41); Mean Corp Hgb Conc 31.4 g/dL (32-36); Mean Corpuscular Volume 95.7 fL (81-99); Monocyte# 1.26 X10^3/uL; Monocyte% 5.8 % (0-10); NRBC Flagged by Analyzer 0 % (0-5); Neutrophil # 19.02 X10^3/uL (2.7-7.7); Neutrophil % 87.5 % (47-70); Platelet Count 231 K/mm3 (150-450); RBC Distribution Width CV 13.3 % (11.6-14.6); RBC Distribution Width SD 47.2 fl (35.1-43.9); Red Blood Count 4.66 M/mm3 (4.2-5.4); White Blood Count 21.7 K/mm3 (4.4-11.0)
[2020-12-16 06:15] LABS: Anion Gap 9 (5-15); BUN 26 mg/dL (7-18); BUN/Creat Ratio 21.8 RATIO (10-20); Calcium,Total 7.7 mg/dL (8.5-10.1); Chloride 113 mmol/L (98-107); Creatinine, Serum 1.19 mg/dL (0.55-1.02); EST Glomerular Filtration Rate 47 mL/min (>60); Est Glom Filt Rate - Afr Amer 56 mL/min (>60); Estimated Creatinine Clearance 32.23 ml/min; Glucose 240 mg/dL (74-106); Potassium 4.9 mmol/L (3.5-5.1); Sodium Level 140 mmol/L (136-145)
--- NOTE | 2020-12-16 07:13 | MRI_ITS ---
HISTORY: Anoxic brain injury, cardiac arrest EXAMINATION: MR Brain W/O Contrast TECHNIQUE: Multiplanar and multisequence MR images of the brain were obtained without gadolinium. IV Contrast dosage and agent: COMPARISON: Noncontrast head CT 12/15/20 FINDINGS: Patient intubated. BRAIN PARENCHYMA: No MRI evidence of hemorrhage. No evidence of acute infarct. Central and cortical involutional changes are noted. There is increased T2 and FLAIR signal abnormality in the periventricular white matter. No intracranial mass or mass effect. There is preservation of the cheney/white matter interface. Normal sella turcica, pituitary gland, infundibular stalk, optic chiasm and hypothalamus. The internal auditory canals are patent. Posterior fossa structures are unremarkable. CSF SPACES: Appropriate for age. No hydrocephalus. Basal cisterns are patent. VASCULAR SYSTEM: Normal flow voids in the major intracranial circulation. CALVARIUM, SKULL BASE, PARANASAL SINUSES AND MASTOID AIR CELLS: Scattered within the periosteal thickening. No discrete lytic or blastic abnormalities. ORBITS: Both globes, extraocular muscles, optic nerves and retrobulbar fat appear unremarkable. MRI/Brain without Contrast IMPRESSION: Chronic involutional and white matter changes. No acute intracranial process. at 1228 Reported and signed by: Edvin Hess MD Electronically Signed: Edvin Hess MD at 12:27 EDT Tel , Service support ,
--- NOTE | 2020-12-16 07:13 | RAD_ITS ---
STUDY: X-RAY CHEST REASON FOR EXAM: Female, 80 years old. Hypoxia TECHNIQUE: Single AP portable view of the chest. COMPARISON: 12/15/2020 FINDINGS: Endotracheal tube and nasogastric tube both which are unchanged. Interval development of alveolar opacity me upper right lung consistent with right upper lobe pneumonia. There is no demonstrated pleural abnormality. Normal size heart. Normal mediastinum and luiz. Normal visualized pulmonary arteries. Normal visualized aortic arch and descending thoracic aorta. Normal visualized thoracic spine. Normal visualized ribs, clavicles, and shoulders. There is no demonstrated abnormality of the visualized soft tissue structures of the upper abdomen. RAD/Chest 1 View (Portable) IMPRESSION: 1. Endotracheal tube and nasogastric tube both which are unchanged. 2. 2. Interval development of right upper lobe pneumonia. Electronically Signed: Zach Fine MD at 7:50 EDT Tel , Service support ,
--- NOTE | 2020-12-16 07:31 | PN.CC_ITS ---
Assessment & Plan Assessment/Plan (1) Cardiopulmonary arrest with successful resuscitation: (2) Sleep apnea: (3) Acute respiratory failure with hypoxia: PLAN: RECOMMENDATIONS: 1. Obtain MRI. Await EEG 2. Continue propofol with breaks until EEG results available 3. Wean pressors as tolerated 4. Obtain chest x-ray 5. Continue cardiopulmonary support 6. Continue supportive care pending neuro status IMPRESSIONS: 1. Acute cardiopulmonary arrest of unclear etiology Unclear etiology at this time. Echocardiogram shows a significant reduction in EF with Q waves on EKG. This would be suggestive of a possible silent [place] as patient does not have a history of CHF in the past. Unfortunately, targeted temperature management is not available. Window for its use is closed at this point. 2. Probable anoxic encephalopathy Patient may have had up to 30 minutes of pulseless activity. Patient a ppears to be neurologically devastated that this time. Other possible etiologies would be status epilepticus. Patient has had some intermittent what appears to be myoclonic jerking of the face. EEG is still pending. MRI will be ordered. Anticipate 48 to 72 hours of supportive care with reassessment of neuro status. Patient will be empirically placed on propofol and Keppra in the interim. 3. Acute kidney injury Clinical suspicion that this is secondary to the arrest. Prerenal etiology would be suspected for now. Will monitor urine output. Baseline creatinine appears to be about 0.8 and presentation creatinine of 1.09. If this is related to #1, anticipate improvement with control of blood pressure. 4. Obstructive sleep apnea/advanced age/depression/hypercholesterolemia Complicates care, management, recovery and prognosis. Patient currently intubated so CPAP not necessary. Hold home medications for now TIME: 35 minutes critical care time spent addressing patient's acute car diopulmonary arrest, possible anoxic encephalopathy, acute kidney injury, review of all data and collaboration with care team (5:45 AM to 6:45 AM) Subjective Subjective Patient with cardiac arrest yesterday. Patient has subsequently with increased FiO2, PEEP and pressor requirements. Oxygenation and pressors continue to improve. Patient does appear to have more posturing today. Patient is breathing over the vent and has pupillary response, but otherwise is not following commands. Patient did have a neurology evaluation overnight and subsequently was placed on continuous propofol and Keppra. Objective Data Objective Data Vital Signs: Vital Signs Temp Pulse Resp BP Pulse Ox 36.3 C L 125 H 14 128/84 H 100 08/21/21 05:00 12/16/20 07:16 12/16/20 07:16 12/16/20 05:00 12/16/20 07:16 Oxygen Flow Rate (L/min) 60 Oxygen Delivery Method Mechanical Ventilator Weight: 64.9 kg Body Mass Index (BMI) 25.3 Intake & Output: Intake and Output for Last 24 Hours 12/14/20 12/15/20 12/16/20 23:59 23:59 23:59 Intake Total 4337.17 / 4365.27 224.67 / 224.67 Output Total 400 / 400 225 / 225 Balance 3937.17 / 3965.27 -0.33 / -0.33 Lab / Micro Data Result Diagrams: 12/16/20 05:36 12/16/20 05:36 Labs: Laboratory Results - last 24 hr 12/15/20 07:10: APTT 29.2 12/15/20 07:10: Phosphorus 2.2 L 12/15/20 08:30: Troponin I High Sens 2185 H* 12/15/20 12:30: Troponin I High Sens 1971 H* 12/15/20 14:30: Troponin I High Sens 1975 H* 12/15/20 14:30: APTT 123.6 H* 12/15/20 16:05: WBC 14.2 H, RBC 3.34 L, Hgb 10.1 L, Hct 30.8 L, MCV 92.2, MCH 30.2, MCHC 32.8, RDW Std Deviation 44.0 H, RDW Coeff of [place] 13.1, Plt Count 130 L, MPV 10.4, Immature Gran % (Auto) 0.600, Neut % (Auto) 73.1 H, Lymph % (Auto) 19.8, [place] % (Auto) 6.4, Eos % (Auto) 0.0, Baso % (Auto) 0.1, Absolute Neuts (auto) 10.4 H, Absolute Lymphs (auto) 2.82, Nucleated RBC % 0.1 12/15/20 16:05: Sodium 177 H*, Potassium 6.1 H*, Chloride 124 H, Carbon Dioxide > 45.0 H*, Anion Gap TNP, BUN 15, Creatinine 0.44 L, Estim Creat Clear Calc 38.35, Est GFR (MDRD) Af Amer 177, Est GFR (MDRD) Non-Af 146, BUN/Creatinine Ratio 34.0 H, Glucose 123 H, Calcium < 5.0 L*, Magnesium 1.2 L, Total Bilirubin 0.30, AST 55 H, ALT 58 H, Alkaline Phosphatase 30 L, Total Protein 3.3 L, Albumin 1.6 L, Globulin 1.7 L, Albumin/Globulin Ratio 0.9 12/15/20 16:05: Sodium Cancelled, Potassium Cancelled, Chloride Cancelled, Carbon Dioxide Cancelled, Anion Gap Cancelled, BUN Cancelled, Creatinine Cancelled, Estim Creat Clear Calc Cancelled, Est GFR (MDRD) Af Amer Cancelled, Est GFR (MDRD) Non-Af Cancelled, BUN/Creatinine Ratio Cancelled, Glucose Ca ncelled, Calcium Cancelled, Magnesium Cancelled, Total Bilirubin Cancelled, AST Cancelled, ALT Cancelled, Alkaline Phosphatase Cancelled, Total Protein Cancelled, Albumin Cancelled, Globulin Cancelled, Albumin/Globulin Ratio Cancelled 12/15/20 16:05: Phosphorus 8.3 H 12/15/20 16:32: POC Glucose 179 H 12/15/20 18:03: WBC 23.7 H, RBC 4.73, Hgb 14.2, Hct 46.6, MCV 98.5 D, MCH 30.0, MCHC 30.5 L D, RDW Std Deviation 47.5 H, RDW Coeff of [place] 13.2, Plt Count 269, MPV 10.3 12/15/20 18:03: Sodium 145, Potassium 4.9, Chloride 113 H, Carbon Dioxide 21.0, Anion Gap 11, BUN 21 H, Creatinine 1.22 H, Estim Creat Clear Calc 31.44, Est GFR (MDRD) Af Amer 55 L, Est GFR (MDRD) Non-Af 45 L, BUN/Creatinine Ratio 17.2, Glucose 243 H, Calcium 7.8 L, Phosphorus 6.7 H, Magnesium 1.8 12/16/20 00:18: Total Creatine Kinase 853 H, Triglycerides 139 12/16/20 02:15: APTT Cancelled 12/16/20 03:10: APTT 99.7 H* 12/16/20 05:36: WBC 21.7 H, RBC 4.66, Hgb 14.0, Hct 44.6, MCV 95.7, MCH 30.0, MCHC 31.4 L, RDW Std Deviation 47.2 H, RDW Coeff of [place] 13.3, Plt Count 231, MPV 10.0, Immature Gran % (Auto) 0.900, Neut % (Auto) 87.5 H, Lymph % (Auto) 5.6 L, [place] % (Auto) 5.8, Eos % (Auto) 0.0, Baso % (Auto) 0.2, Absolute Neuts (auto) 19.0 H, Absolute Lymphs (auto) 1.21, Nucleated RBC % 0 12/16/20 05:36: Sodium 140, Potassium 4.9, Chloride 113 H, Carbon Dioxide 18.0 L , Anion Gap 9, BUN 26 H, Creatinine 1.19 H, Estim Creat Clear Calc 32.23, Est GFR (MDRD) Af Amer 56 L, Est GFR (MDRD) Non-Af 47 L, BUN/Creatinine Ratio 21.8 H , Glucose 240 H, Calcium 7.7 L ABG Data ABG results: ABG 12/15/20 16:42 Specimen Type ART Sample Site L Radial pH 7.17 L* Bicarbonate Actual 18.3 L Total CO2 20 Base Excess -10 L O2 Saturation 82 L O2 % 100 ABG pCO2 50.4 H ABG pO2 59 L James Test Positive Respiration Rate 14 O2 Delivery Device Adult Vent Vent Mode AC Tidal Volume 450 POC PEEP 8 Crit Call To/Read Back Yes Blood Gas Notified Whom dr rodriguez Radiography Diagnostic Testing: Radiology Impression Echocardiogram 12/15/20 05:55 Interpretation Summary The estimated ejection fraction is EF 10-15 %. Severe LV systolic function Global LV Hypokinesia Mild MR Mild AI Moderate TR No prior Echo to compare Ordering Physician: Jorge Herrera Referring Physician: New Allsion Performed By: Romelia Ogden, RDCS, RVT Physical Exam Const no apparent distress General Appearance: well developed, intubated and patient mechanically ventilated; Negative for in distress, ill appearing or diaphoretic Orientation / Consciousness: comatose Exam Limitations: altered mental status HEENT normocephalic, head/scalp atraumatic and moist oral mucous membranes Eyes PERRL Eyes Narrative: Eyes deviated caudally bilaterally. Scleral injection noted. Neck no lymphadenopathy Neck Narrative: No meningismus noted Chest inspection of chest normal Resp normal respiratory effort and no use of accessory muscles Effort and Inspection: able to speak in complete sentences Auscultation: clear to auscultation bilaterally; Negative for rales, rhonchi or wheezes Percussion: Negative for dullness Cardio regular rate, regular rhythm, S1 normal heart sound, S2 normal heart sound, no murmurs, no rub and no gallops GI normal to inspection, nondistended, normoactive bowel sounds Extremity no clubbing, cyanosis or edema Skin no rashes or lesions noted Neuro Neuro Narrative: More decerebrate type posturing with stimulation. [place] Coma Scale: document GCS findings None None None 3 Sensorium / Orientation: obtunded Psych cooperative and affect normal Charges/Coding Procedures Hospitalists Procedures: 24830 Critial Care 1st Hr
--- NOTE | 2020-12-16 12:20 | NURSING ---
[facility] called at this time to notify of need for PICC placement, will call back with ETA.
[2020-12-16] MEDS: Chlorhexidine 15 ML PO ×2 (12:21→20:00)
[2020-12-16] MEDS: Sertraline 50 MG Tablet GT (12:21)
[2020-12-16] MEDS: Famotidine 20 MG Tablet GT (12:21)
[2020-12-16] MEDS: 0.9% Saline Lock 10 ML Syringe IV ×2 (12:25→19:36)
--- NOTE | 2020-12-16 13:51 | PN.HOSP_ITS ---
Subjective Subjective Patient intubated and currently on sedation with propofol although when off propofol is not reactive. Suffered from a CODE BLUE yesterday afternoon after presenting as a field arrest with ROSC. Has had myoclonus. She is currently on Keppra. Objective Data Objective Data Vital Signs: Vital Signs Temp Pulse Resp BP Pulse Ox 99.0 F 132 H 14 116/81 H 100 12/16/20 12:00 12/16/20 13:00 12/16/20 13:00 12/16/20 13:00 12/16/20 13:00 Oxygen Flow Rate (L/min) 60 Oxygen Delivery Method Mechanical Ventilator Weight: 68.8 kg Body Mass Index (BMI) 25.3 Intake & Output: Intake and Output for Last 24 Hours 12/14/20 12/15/20 12/16/20 23:59 23:59 23:59 Intake Total 4352.22 / 4380.32 787.11 / 787.11 Output Total 400 / 400 675 / 675 Balance 3952.22 / 3980.32 112.11 / 112.11 Lab / Micro Data Result Diagrams: 12/16/20 05:36 12/16/20 05:36 Labs: Laboratory Results - last 24 hr 12/15/20 14:30: Troponin I High Sens 1975 H* 12/15/20 14:30: APTT 123.6 H* 12/15/20 16:05: WBC 14.2 H, RBC 3.34 L, Hgb 10.1 L, Hct 30.8 L, MCV 92.2, MCH 30.2, MCHC 32.8, RDW Std Deviation 44.0 H, RDW Coeff of [place] 13.1, Plt Count 130 L, MPV 10.4, Immature Gran % (Auto) 0.600, Neut % (Auto) 73.1 H, Lymph % (Auto) 19.8, [place] % (Auto) 6.4, Eos % (Auto) 0.0, Baso % (Auto) 0.1, Absolute Neuts (auto) 10.4 H, Absolute Lymphs (auto) 2.82, Nucleated RBC % 0.1 12/15/20 16:05: Sodium 177 H*, Potassium 6.1 H*, Chloride 124 H, Carbon Dioxide > 45.0 H*, Anion Gap TNP, BUN 15, Creatinine 0.44 L, Estim Creat Clear Calc 38.35, Est GFR (MDRD) Af Amer 177, Est GFR (MDRD) Non-Af 146, BUN/Creatinine Ratio 34.0 H, Glucose 123 H, Calcium < 5.0 L*, Magnesium 1.2 L, Total Bilirubin 0.30, AST 55 H, ALT 58 H, Alkaline Phosphatase 30 L, Total Protein 3.3 L, Albumin 1.6 L, Globulin 1.7 L, Albumin/Globulin Ratio 0.9 12/15/20 16:05: Sodium Cancelled, Potassium Cancelled, Chloride Cancelled, Carbon Dioxide Cancelled, Anion Gap Cancelled, BUN Cancelled, Creatinine Cancelled, Estim Creat Clear Calc Cancelled, Est GFR (MDRD) Af Amer Cancelled, Est GFR (MDRD) Non-Af Cancelled, BUN/Creatinine Ratio Cancelled, Glucose Cancelled, Calcium Cancelled, Magnesium Cancelled, Total Bilirubin Cancelled, AST Cancelled, ALT Cancelled, Alkaline Phosphatase Cancelled, Total Protein Cancelled, Albumin Cancelled, Globulin Cancelled, Albumin/Globulin Ratio Cancelled 12/15/20 16:05: Phosphorus 8.3 H 12/15/20 16:32: POC Glucose 179 H 12/15/20 18:03: WBC 23.7 H, RBC 4.73, Hgb 14.2, Hct 46.6, MCV 98.5 D, MCH 30.0, MCHC 30.5 L D, RDW Std Deviation 47.5 H, RDW Coeff of [place]ison 13.2, Plt Count 269, MPV 10.3 12/15/20 18:03: Sodium 145, Potassium 4.9, Chloride 113 H, Carbon Dioxide 21.0, Anion Gap 11, BUN 21 H, Creatinine 1.22 H, Estim Creat Clear Calc 31.44, Est GFR (MDRD) Af Amer 55 L, Est GFR (MDRD) Non-Af 45 L, BUN/Creatinine Ratio 17.2, Glucose 243 H, Calcium 7.8 L, Phosphorus 6.7 H, Magnesium 1.8 12/16/20 00:18: Total Creatine Kinase 853 H, Triglycerides 139 12/16/20 02:15: APTT Cancelled 12/16/20 03:10: APTT 99.7 H* 12/16/20 05:36: WBC 21.7 H, RBC 4.66, Hgb 14.0, Hct 44.6, MCV 95.7, MCH 30.0, MCHC 31.4 L, RDW Std Deviation 47.2 H, RDW Coeff of [place] 13.3, Plt Count 231, MPV 10.0, Immature Gran % (Auto) 0.900, Neut % (Auto) 87.5 H, Lymph % (Auto) 5.6 L, [place] % (Auto) 5.8, Eos % (Auto) 0.0, Baso % (Auto) 0.2, Absolute Neuts (auto) 19.0 H, Absolute Lymphs (auto) 1.21, Nucleated RBC % 0 12/16/20 05:36: Sodium 140, Potassium 4.9, Chloride 113 H, Carbon Dioxide 18.0 L , Anion Gap 9, BUN 26 H, Creatinine 1.19 H, Estim Creat Clear Calc 32.23, Est GFR (MDRD) Af Amer 56 L, Est GFR (MDRD) Non-Af 47 L, BUN/Creatinine Ratio 21.8 H , Glucose 240 H, Calcium 7.7 L 12/16/20 12:15: APTT 40.0 H ABG Data ABG results: ABG 12/15/20 16:42 Specimen Type ART Sample Site L Radial pH 7.17 L* Bicarbonate Actual 18.3 L Total CO2 20 Base Excess -10 L O2 Saturation 82 L O2 % 100 ABG pCO2 50.4 H ABG pO2 59 L James Test Positive Respiration Rate 14 O2 Delivery Device Adult Vent Vent Mode AC Tidal Volume 450 POC PEEP 8 Crit Call To/Read Back Yes Blood Gas Notified Whom dr rodriguez Radiography Diagnostic Testing: Radiology Impression Brain MRI 12/16/20 07:13 IMPRESSION: Chronic involutional and white matter changes. No acute intracranial process. at 1228 Reported and signed by: Edvin Hess MD Electronically Signed: Edvin Hess MD at 12:27 EDT Tel , Service support , Chest X-Ray 12/16/20 07:13 IMPRESSION: 1. Endotracheal tube and nasogastric tube both which are unchanged. 2. 2. Interval development of right upper lobe pneumonia. Electronically Signed: Zach Fine MD at 7:50 EDT Tel , Service support , Physical Exam Const Constitutional Narrative: Patient is intubated and currently on propofol, intermittent myoclonus noted specifically in the face and upper extremities, no interaction or significant response to noxious stimulus HEENT head/scalp atraumatic HEENT Narrative: ET tube in place Head and Scalp: normocephalic Eyes PERRL and conjunctivae normal Neck supple Neck Narrative: Trachea midline, no thyroid enlargement noted Resp normal respiratory effort, no retractions and no use of accessory muscles Resp Narrative: Diminished right upper lobe, few scattered rhonchi Auscultation: rhonchi; Negative for crackles, rales or wheezes Cardio regular rhythm, S1 normal heart sound, S2 normal heart sound, no murmurs, no rub, no gallops, no clicks and no JVD Cardio Narrative: Tachycardia GI normal to inspection, nondistended, normoactive bowel sounds, soft to palpation, non-tender and non-distended Extremity no clubbing, cyanosis or edema Peripheral Pulses: Yes pulses 2+ throughout Skin no rashes or lesions noted, no wounds, skin turgor normal, no jaundice, no petechiae and no mottling Neuro Neuro Narrative: Intubated and sedated, reflexes are normal, patient is on propofol Assessment & Plan Assessment/Plan (1) Cardiopulmonary arrest with successful resuscitation: (2) Acute respiratory failure with hypoxia: (3) Cardiomyopathy: (4) Anoxia of brain: PLAN: Acute hypoxic respiratory failure status post arrest -Patient has had intermittent brief periods of increased oxygen requirement although has predominantly been maintaining on 30% FiO2 with 10 of PEEP -We will start empiric Unasyn given suspected aspiration with arrest -Right upper lobe infiltrate noted on chest x-ray from today -Check sputum culture -Continue as needed aerosols -Repeat a.m. chest x-ray Cardiopulmonary arrest -EEG done and is consistent with hypoxic/anoxic brain injury -MRI done today and shows no acute findings but does show chronic involutional and white matter changes -May need to repeat in 48 to 72 hours to reassess changes consistent with hypoxia -Continue Keppra -Monitor continued myoclonus -Neurology was consulted -Overall suspect outcome is extremely poor--> neurology would like 72 hours for evaluation -Avoid sedating medications other than propofol as able -Specifically avoid benzodiazepines Aspiration pneumonia -Continue antibiotics as above -Cultures pending -We will obtain MRSA PCR and blood cultures as well Shock -Undifferentiated -Sepsis work-up in progress -Continue Unasyn -Continue pressors and wean as able -With low EF cardiogenic shock could be a possibility as well -Consider VBG tomorrow if remains on pressors Cardiomyopathy/NSTEMI -Suspect related to acute event prior to admission -May need further work-up depending on family's position with regards to care -Patient does have Q waves on her EKG -Hypothermia protocol unfortunately is not available and she is out of the window at this point -Patient is fully anticoagulated with a heparin drip at this time Suspected anoxic encephalopathy -Up to 30 minutes of pulseless activity -EEG is consistent with anoxia -MRI is negative at this time but may need repeated in 48 to 72 hours -Neuro is following -Continue Keppra SUNNY -Continue pressors -Monitor serum creatinine -No current needs for [employer] Hyperlipidemia -Continue statin Obstructive sleep apnea -Patient intubated History of depression -Hold Zoloft DVT/GI prophylaxis -Continue full dose heparin -Continue famotidine 20 mg twice daily Charges/Coding Visit Charges Inpatient E&M: 04241 Subs Hosp L2
--- NOTE | 2020-12-16 15:50 | RAD_ITS ---
STUDY: X-RAY CHEST REASON FOR EXAM: Female, 80 years old. PICC line placement TECHNIQUE: Single AP portable view of the chest. COMPARISON: 12/16/2020 at 07 17 FINDINGS: Interval placement of right upper extremity PICC with tip the catheter overlying the junction of the right atrium and spur vena cava. Endotracheal tube and nasogastric tube both which are unchanged. No change in the alveolar opacities in the right lung consistent with right-sided pneumonia. There is no demonstrated pleural abnormality. Normal size heart. Normal mediastinum and luiz. Normal visualized pulmonary arteries. Normal visualized aortic arch and descending thoracic aorta. Normal visualized thoracic spine. Normal visualized ribs, clavicles, and shoulders. There is no demonstrated abnormality of the visualized soft tissue structures of the upper abdomen. RAD/CXR for Line Placement IMPRESSION: 1. Interval placement of right upper extremity PICC with tip the catheter overlying the junction of the right atrium and spur vena cava. 2. Endotracheal tube and nasogastric tube both which are unchanged. 3. No change in right-sided pneumonia. Electronically Signed: Zach Fine MD at 16:09 EDT Tel , Service support ,
[2020-12-16] MEDS: Propofol 10MG/Ml 1,000 MG/100 ML Bottle 4.1 MG CONT INF (16:56)
[2020-12-16 18:01] LABS: M R Staph aureus DNA By PCR Negative (Negative); Probe Check PASS; Specimen Processing Control PASS
[2020-12-16 18:51] LABS: Anion Gap 8 (5-15); BUN 28 mg/dL (7-18); BUN/Creat Ratio 27.2 RATIO (10-20); Calcium,Total 7.9 mg/dL (8.5-10.1); Chloride 111 mmol/L (98-107); Creatinine, Serum 1.03 mg/dL (0.55-1.02); EST Glomerular Filtration Rate 55 mL/min (>60); Est Glom Filt Rate - Afr Amer 67 mL/min (>60); Estimated Creatinine Clearance 37.24 ml/min; Glucose 144 mg/dL (74-106); Magnesium 2.3 mg/dL (1.6-2.6); Sodium Level 143 mmol/L (136-145)
[2020-12-16 18:58] LABS: Partial Thromboplast Time 28.7 Seconds (24.1-36.2)
[2020-12-16] MEDS: Heparin Injection (Vial) 5,000 UNIT/ML VIAL IV (19:36)
[2020-12-16] MEDS: Atorvastatin Calcium 10 MG Tablet PO (22:58)
[2020-12-16] MEDS: Acetaminophen 650 MG/20 ML UDC GT (22:58)
[2020-12-17] VITALS (60 sets, daily range): BP systolic 73–159; BP diastolic 39–87; PULSE 65–123; RESP 12–14; TEMP 36.8–38.3; O2SAT 83–99
[2020-12-17] MEDS: 0.9% Saline Lock 10 ML Syringe IV ×3 (00:45→22:04)
--- NOTE | 2020-12-17 00:55 | NURSING ---
Anupama Macedo RN, Senior Accounting Associate called during this shift because she was unable to get into the computer at the time she was here to add in the information under the PICC insertion tab after she placed the PICC line.
[2020-12-17 02:47] LABS: Partial Thromboplast Time 90.5 Seconds (24.1-36.2)
[2020-12-17 04:03] LABS: Absolute Lymphocyte Count 1.08 X10^3/uL (0.83-4.51); Basophil# 0.02 X10^3/uL; Basophil% 0.1 % (0-1); Hematocrit 36.1 % (37-47); Hemoglobin 11.5 g/dL (12.0-15.0); Lymphocyte # 1.08 X10^3/ul (0.83-4.51); Lymphocyte % 6.7 % (19-41); Mean Corp Hgb Conc 31.9 g/dL (32-36); Mean Corpuscular Hgb 29.8 pg (27.0-32.0); Mean Corpuscular Volume 93.5 fL (81-99); Mean Platelet Vol. 10.2 fl (6.2-12.0); Monocyte# 0.94 X10^3/uL; Monocyte% 5.8 % (0-10); NRBC Flagged by Analyzer 0 % (0-5); Neutrophil # 13.99 X10^3/uL (2.7-7.7); Neutrophil % 86.7 % (47-70); Platelet Count 178 K/mm3 (150-450); RBC Distribution Width CV 13.5 % (11.6-14.6); RBC Distribution Width SD 46.6 fl (35.1-43.9); Red Blood Count 3.86 M/mm3 (4.2-5.4); White Blood Count 16.2 K/mm3 (4.4-11.0)
[2020-12-17] MEDS: Propofol 10MG/Ml 1,000 MG/100 ML Bottle 4.1 MG CONT INF (04:45)
[2020-12-17] MEDS: HEPARIN/D5w 25,000 UNITS 25,000 UNITS/250 ML IV.SOLN. 5 UNITS IV (04:53)
[2020-12-17 04:58] LABS: ALB/GLOB Ratio 0.8 RATIO (0.9-2.4); AST(SGOT) 124 U/L (15-37); Alanine Aminotransfer ALT/SGPT 115 U/L (13-56); Albumin, Serum 2.4 g/dL (3.2-5.0); Alkaline Phosphatase 50 U/L (45-117); Anion Gap 7 (5-15); BUN 26 mg/dL (7-18); BUN/Creat Ratio 28.3 RATIO (10-20); Calcium,Total 7.8 mg/dL (8.5-10.1); Chloride 113 mmol/L (98-107); Creatinine, Serum 0.92 mg/dL (0.55-1.02); EST Glomerular Filtration Rate 63 mL/min (>60); Est Glom Filt Rate - Afr Amer 76 mL/min (>60); Estimated Creatinine Clearance 41.69 ml/min; Globulin 3.2 g/dL (2.2-4.2); Glucose 129 mg/dL (74-106); Magnesium 2.1 mg/dL (1.6-2.6); Potassium 4.1 mmol/L (3.5-5.1); Protein, Total 5.6 g/dL (6.4-8.2); Sodium Level 144 mmol/L (136-145)
--- NOTE | 2020-12-17 07:17 | PN.CC_ITS ---
Assessment & Plan Assessment/Plan (1) Cardiopulmonary arrest with successful resuscitation: (2) Sleep apnea: (3) Acute respiratory failure with hypoxia: PLAN: RECOMMENDATIONS: 1. Await EEG 2. Continue propofol with breaks for neuro checks until EEG results available 3. Wean pressors as tolerated 4. Continue to have goals of therapy discussions with family 5. Continue cardiopulmonary support 6. Continue supportive care pending neuro status IMPRESSIONS: 1. Acute cardiopulmonary arrest of unclear etiology Unclear etiology at this time. Echocardiogram shows a significant reduction in EF with Q waves on EKG. This would be suggestive of a possible silent [place] as patient does not have a history of CHF in the past. Unfortunately, targeted temperature management is not available. Window for its use is closed at this point. Clinical suspicion that pressor requirement is suggestive of cardiogenic shock, not sepsis 2. Probable anoxic encephalopathy Patient may have had up to 30 minutes of pulseless activity. Patient appears to be neurologically devastated that this time. Other possible etiologies would be status epilepticus. Patient has had some intermittent what appears to be myoclonic jerking of the face. EEG is still pending. MRI will be ordered. Patient with little improvement over the past 48 hours. Neurology is recommending 72 hours with reassessment. Patient will be empirically placed on propofol and Keppra in the interim. Repeat EEG scheduled for today. 3. Acute kidney injury Resolved. Clinical suspicion that this is secondary to the arrest. Prerenal etiology would be suspected for now. Will monitor urine output. Baseline creatinine appears to be about 0.8 and presentation creatinine of 1.09. If this is related to #1, anticipate improvement with control of blood pressure. 4. Obstructive sleep apnea/advanced age/depression/hypercholesterolemia Complicates care, management, recovery and prognosis. Patient currently intubated so CPAP not necessary. Hold home medications for now TIME: 32 minutes critical care time spent addressing patient's acute cardiopulmonary arrest, possible anoxic encephalopathy, acute kidney injury, review of all data and collaboration with care team (5:30 AM to 6:30 AM) Subjective Subjective Patient did okay overnight. Patient remains on Levophed, but vasopressin has been discontinued. Patient's oxygenation status has also improved. Patient continues to have a pupillary response, but is breathing with the ventilator. Nursing is reporting some sensation of the leg. Myoclonic jerking has been more prominent. Family had requested another EEG per neurology recommendations with the hospitalist yesterday. This has been ordered for today. Objective Data Objective Data Vital Signs: Vital Signs Temp Pulse Resp BP Pulse Ox 37.7 C H 108 H 14 146/74 H 97 12/17/20 06:00 12/17/20 06:00 12/17/20 06:00 12/17/20 06:00 12/17/20 06:00 Oxygen Flow Rate (L/min) 60 Oxygen Delivery Method Mechanical Ventilator Weight: 68 kg Body Mass Index (BMI) 25.3 Intake & Output: Intake and Output for Last 24 Hours 12/15/20 12/16/20 12/17/20 23:59 23:59 23:59 Intake Total 4352.22 / 4380.32 1495.79 / 1506.82 363.92 / 363.92 Output Total 400 / 400 925 / 925 150 / 150 Balance 3952.22 / 3980.32 570.79 / 581.82 213.92 / 213.92 Lab / Micro Data Result Diagrams: 12/17/20 Unknown 12/17/20 Unknown Labs: Laboratory Results - last 24 hr 12/16/20 12:15: APTT 40.0 H 12/16/20 15:32: MRSA (PCR) Negative 12/16/20 18:25: APTT 28.7 12/16/20 18:25: Sodium 143, Potassium 5.0, Chloride 111 H, Carbon Dioxide 24.0, Anion Gap 8, BUN 28 H, Creatinine 1.03 H, Estim Creat Clear Calc 37.24, Est GFR (MDRD) Af Amer 67, Est GFR (MDRD) Non-Af 55 L, BUN/Creatinine Ratio 27.2 H, Glucose 144 H, Calcium 7.9 L, Magnesium 2.3 12/17/20 02:10: APTT 90.5 H* 12/17/20 : WBC 16.2 H, RBC 3.86 L, Hgb 11.5 L, Hct 36.1 L, MCV 93.5, MCH 29.8, MCHC 31.9 L, RDW Std Deviation 46.6 H, RDW Coeff of Addison 13.5, Plt Count 178, MPV 10.2, Immature Gran % (Auto) 0.700, Neut % (Auto) 86.7 H, Lymph % (Auto) 6.7 L, [place] % (Auto) 5.8, Eos % (Auto) 0.0, Baso % (Auto) 0.1, Absolute Neuts (auto) 14.0 H, Absolute Lymphs (auto) 1.08, Nucleated RBC % 0 12/17/20 : Sodium 144, Potassium 4.1, Chloride 113 H, Carbon Dioxide 24.0, Anion Gap 7, BUN 26 H, Creatinine 0.92, Estim Creat Clear Calc 41.69, Est GFR (MDRD) Af Amer 76, Est GFR (MDRD) Non-Af 63, BUN/Creatinine Ratio 28.3 H, Glucose 129 H , Calcium 7.8 L, Magnesium 2.1, Total Bilirubin 0.30, AST 124 H, ALT 115 H, Alkaline Phosphatase 50, Total Protein 5.6 L, Albumin 2.4 L, Globulin 3.2, Albumin/Globulin Ratio 0.8 L Radiography Diagnostic Testing: Radiology Impression Brain MRI 12/16/20 07:13 IMPRESSION: Chronic involutional and white matter changes. No acute intracranial process. at 1228 Reported and signed by: Edvin Hess MD Electronically Signed: Edvin Hess MD at 12:27 EDT Tel , Service support , Chest X-Ray 12/16/20 07:13 IMPRESSION: 1. Endotracheal tube and nasogastric tube both which are unchanged. 2. 2. Interval development of right upper lobe pneumonia. Electronically Signed: Zach Fine MD at 7:50 EDT Tel , Service support , Chest X-Ray 12/16/20 15:50 IMPRESSION: 1. Interval placement of right upper extremity PICC with tip the catheter overlying the junction of the right atrium and spur vena cava. 2. Endotracheal tube and nasogastric tube both which are unchanged. 3. No change in right-sided pneumonia. Electronically Signed: Zach Fine MD at 16:09 EDT Tel , Service support , Physical Exam Const no apparent distress General Appearance: well developed, intubated and patient mechanically ventilated; Negative for in distress, ill appearing or diaphoretic Orientation / Consciousness: comatose Exam Limitations: altered mental status HEENT normocephalic, head/scalp atraumatic and moist oral mucous membranes Eyes PERRL Eyes Narrative: Eyes deviated caudally bilaterally. Scleral injection noted. Neck no lymphadenopathy Neck Narrative: No meningismus noted Chest inspection of chest normal Resp normal respiratory effort and no use of accessory muscles Effort and Inspection: able to speak in complete sentences Auscultation: clear to auscultation bilaterally; Negative for rales, rhonchi or wheezes Percussion: Negative for dullness Cardio regular rate, regular rhythm, S1 normal heart sound, S2 normal heart sound, no murmurs, no rub and no gallops GI normal to inspection, nondistended, normoactive bowel sounds Extremity no clubbing, cyanosis or edema Skin no rashes or lesions noted Neuro Neuro Narrative: More decerebrate type posturing with stimulation of lower extremities. Skyler Coma Scale: document GCS findings None None None 3 Sensorium / Orientation: obtunded Meningeal Signs: no meningeal signs Psych cooperative and affect normal Charges/Coding Procedures Hospitalists Procedures: 39909 Critial Care 1st Hr
[2020-12-17 09:28] LABS: Partial Thromboplast Time 41.8 Seconds (24.1-36.2)
[2020-12-17] MEDS: Aspirin 81 MG TAB.CHEW PO (10:33)
[2020-12-17] MEDS: Famotidine 20 MG Tablet GT (10:33)
[2020-12-17] MEDS: Sertraline 50 MG Tablet GT (10:34)
[2020-12-17] MEDS: Chlorhexidine 15 ML PO ×2 (10:34→20:00)
--- NOTE | 2020-12-17 11:30 | PN.HOSP_ITS ---
Subjective Subjective No significant changes overnight. Patient did have a run of monomorphic VT last evening but no further events through the night. She remains having some myoclonus and posturing with stimulus but no meaningful interaction. She remains on Levophed but is off vasopressin. Levophed has been weaned. Objective Data Objective Data Vital Signs: Vital Signs Temp Pulse Resp BP Pulse Ox 100.2 F H 88 14 99/57 L 98 12/17/20 08:00 12/17/20 11:00 12/17/20 11:00 12/17/20 11:00 12/17/20 11:00 Oxygen Flow Rate (L/min) 60 Oxygen Delivery Method Mechanical Ventilator Weight: 68 kg Body Mass Index (BMI) 25.3 Intake & Output: Intake and Output for Last 24 Hours 12/15/20 12/16/20 12/17/20 23:59 23:59 23:59 Intake Total 4352.22 / 4380.32 1495.79 / 1506.82 758.42 / 758.42 Output Total 400 / 400 925 / 925 150 / 150 Balance 3952.22 / 3980.32 570.79 / 581.82 608.42 / 608.42 Lab / Micro Data Result Diagrams: 12/17/20 Unknown 12/17/20 Unknown Labs: Laboratory Results - last 24 hr 12/16/20 12:15: APTT 40.0 H 12/16/20 15:32: MRSA (PCR) Negative 12/16/20 18:25: APTT 28.7 12/16/20 18:25: Sodium 143, Potassium 5.0, Chloride 111 H, Carbon Dioxide 24.0, Anion Gap 8, BUN 28 H, Creatinine 1.03 H, Estim Creat Clear Calc 37.24, Est GFR (MDRD) Af Amer 67, Est GFR (MDRD) Non-Af 55 L, BUN/Creatinine Ratio 27.2 H, Glucose 144 H, Calcium 7.9 L, Magnesium 2.3 12/17/20 02:10: APTT 90.5 H* 12/17/20 09:10: APTT 41.8 H 12/17/20 : WBC 16.2 H, RBC 3.86 L, Hgb 11.5 L, Hct 36.1 L, MCV 93.5, MCH 29.8, MCHC 31.9 L, RDW Std Deviation 46.6 H, RDW Coeff of Addison 13.5, Plt Count 178, MPV 10.2, Immature Gran % (Auto) 0.700, Neut % (Auto) 86.7 H, Lymph % (Auto) 6.7 L, [place] % (Auto) 5.8, Eos % (Auto) 0.0, Baso % (Auto) 0.1, Absolute Neuts (auto) 14.0 H, Absolute Lymphs (auto) 1.08, Nucleated RBC % 0 12/17/20 : Sodium 144, Potassium 4.1, Chloride 113 H, Carbon Dioxide 24.0, Anion Gap 7, BUN 26 H, Creatinine 0.92, Estim Creat Clear Calc 41.69, Est GFR (MDRD) Af Amer 76, Est GFR (MDRD) Non-Af 63, BUN/Creatinine Ratio 28.3 H, Glucose 129 H , Calcium 7.8 L, Magnesium 2.1, Total Bilirubin 0.30, AST 124 H, ALT 115 H, Alkaline Phosphatase 50, Total Protein 5.6 L, Albumin 2.4 L, Globulin 3.2, Albumin/Globulin Ratio 0.8 L Micro: Microbiology 12/15/20 21:30 Sputum, Induced/Lukens Respiratory Culture - Preliminary Appears to be normal respiratory diana. Further studies to follow. Radiography Diagnostic Testing: Radiology Impression Brain MRI 12/16/20 07:13 IMPRESSION: Chronic involutional and white matter changes. No acute intracranial process. at 1228 Reported and signed by: Edvin Hess MD Electronically Signed: Edvin Hess MD at 12:27 EDT Tel , Service support , Chest X-Ray 12/16/20 15:50 IMPRESSION: 1. Interval placement of right upper extremity PICC with tip the catheter overlying the junction of the right atrium and spur vena cava. 2. Endotracheal tube and nasogastric tube both which are unchanged. 3. No change in right-sided pneumonia. Electronically Signed: Zach Fine MD at 16:09 EDT Tel , Service support , Physical Exam Const Constitutional Narrative: Patient is intubated and sedated, no meaningful intera ction, no significant response other than posturing to noxious stimuli HEENT head/scalp atraumatic Head and Scalp: normocephalic Eyes PERRL and conjunctivae normal Neck no lymphadenopathy, supple and no JVD Neck Narrative: Trachea midline Resp normal respiratory effort, no retractions, no use of accessory muscles and clear to auscultation bilaterally Cardio regular rate, regular rhythm, S1 normal heart sound, S2 normal heart sound, no murmurs, no rub, no gallops, no clicks and no JVD GI normal to inspection, nondistended, normoactive bowel sounds, soft to palpation, non-tender and non-distended Extremity normal to inspection and no clubbing, cyanosis or edema Peripheral Pulses: Yes pulses 2+ throughout Skin no rashes or lesions noted, no wounds, skin turgor normal, no jaundice, no petechiae and no mottling Skin Narrative: PICC right upper extremity, clean and [id number] Neuro Neuro Narrative: Reflexes 2+, Babinski is downgoing Assessment & Plan Assessment/Plan (1) Acute respiratory failure with hypoxia: (2) Cardiopulmonary arrest with successful resuscitation: (3) Anoxia of brain: (4) Cardiomyopathy: PLAN: Acute hypoxic respiratory failure status post arrest -SpO2 remains 97 to 99% on 30% FiO2 -Continue empiric Unasyn -sputum culture ending -Continue as needed aerosols -Continue sedation vacations and wean readiness Cardiopulmonary arrest -EEG done and is consistent with hypoxic/anoxic brain injury -Repeat EEG pending for today -Consider repeat in a.m. depending on results -MRI done 12/16/2020 and shows no acute findings but does show chronic involutional and white matter changes -May need to repeat in 48 to 72 hours to reassess changes consistent with hypoxia -Continue Keppra -Monitor continued myoclonus -Neurology was consulted and will consult for reevaluation tomorrow -Overall suspect outcome is extremely poor--> neurology would like 72 hours for evaluation -Avoid sedating medications other than propofol as able -Specifically avoid benzodiazepines Aspiration pneumonia -Continue antibiotics as above -Cultures pending -MRSA PCR negative Shock -Undifferentiated but suspect cardiogenic -Sepsis work-up in progress -Continue Unasyn -Continue pressors and wean as able -Patient is now off vasopressin but remains on Levophed with weaning doses Cardiomyopathy/NSTEMI -Suspect related to acute event prior to admission -May need further work-up depending on family's position with regards to care -Patient does have Q waves on her EKG -Hypothermia protocol unfortunately is not available and she is out of the window at this point -Patient is fully anticoagulated with a heparin drip at this time Suspected anoxic encephalopathy -Up to 30 minutes of pulseless activity -EEG is consistent with anoxia -MRI is negative at this time but may need repeated in 48 to 72 hours -Neuro is following -Continue Keppra Leukocytosis -May be reactive--> trending down -Infectious work-up pending -Continue empiric Unasyn for suspected aspiration -Repeat CBC in a.m. Transaminase elevation -Suspect related to acute cardiac event and CPA -Trending up--> AST is 124 and ALT is 115 -Continue to monitor SUNNY -Continue pressors -Monitor serum creatinine -No current needs for CLAIM CLINICIAN Hyperlipidemia -Continue statin Obstructive sleep apnea -Patient intubated History of depression -Hold Zoloft DVT/GI prophylaxis -Continue full dose heparin -Continue famotidine 20 mg twice daily CODE STATUS -Full code Charges/Coding Visit Charges Inpatient E&M: 72360 Subs Hosp L2
[2020-12-17 16:30] LABS: Partial Thromboplast Time 48.9 Seconds (24.1-36.2)
[2020-12-17] MEDS: Propofol 10MG/Ml 1,000 MG/100 ML Bottle 12.4 MG CONT INF ×2 (16:43→23:53)
--- NOTE | 2020-12-17 16:43 | PCM.HOSP.N ---
Hospitalist Note EEG results were obtained and called to myself by neurology. The neurologist was concerned that the EEG was consistent with status epilepticus. He recommended either continuous EEG versus periodic EEG monitoring be obtained. The patient remains on Keppra 1500 mg twice daily. We will start Vimpat 200 mg twice daily with a stat dose now. Propofol was increased to 30 mg for suppression of myoclonus/seizure activity. No further myoclonus was noted after increase of propofol. Results were discussed with the family.
[2020-12-17] MEDS: Atorvastatin Calcium 10 MG Tablet PO (21:51)
[2020-12-17 22:11] LABS: Partial Thromboplast Time 55.5 Seconds (24.1-36.2)
[2020-12-18] VITALS (42 sets, daily range): BP systolic 71–148; BP diastolic 47–88; PULSE 61–101; RESP 14–23; TEMP 35.7–37; O2SAT 92–99
[2020-12-18 05:16] LABS: Absolute Lymphocyte Count 1.08 X10^3/uL (0.83-4.51); Absolute Neutrophil Count 7.6 X10^3/uL (2.0-7.7); Basophil# 0.02 X10^3/uL; Basophil% 0.2 % (0-1); Hematocrit 32.5 % (37-47); Hemoglobin 10.2 g/dL (12.0-15.0); Lymphocyte # 1.08 X10^3/ul (0.83-4.51); Lymphocyte % 11.7 % (19-41); Mean Corp Hgb Conc 31.4 g/dL (32-36); Mean Corpuscular Hgb 29.7 pg (27.0-32.0); Mean Corpuscular Volume 94.5 fL (81-99); Mean Platelet Vol. 10.3 fl (6.2-12.0); Monocyte# 0.48 X10^3/uL; Monocyte% 5.2 % (0-10); NRBC Flagged by Analyzer 0 % (0-5); Neutrophil % 82.6 % (47-70); Platelet Count 145 K/mm3 (150-450); RBC Distribution Width CV 13.6 % (11.6-14.6); RBC Distribution Width SD 46.4 fl (35.1-43.9); Red Blood Count 3.44 M/mm3 (4.2-5.4); White Blood Count 9.2 K/mm3 (4.4-11.0)
[2020-12-18 05:31] LABS: Partial Thromboplast Time 64.3 Seconds (24.1-36.2)
[2020-12-18 05:35] LABS: ALB/GLOB Ratio 0.7 RATIO (0.9-2.4); AST(SGOT) 115 U/L (15-37); Alanine Aminotransfer ALT/SGPT 93 U/L (13-56); Albumin, Serum 2.2 g/dL (3.2-5.0); Alkaline Phosphatase 47 U/L (45-117); Anion Gap 5 (5-15); BUN 24 mg/dL (7-18); BUN/Creat Ratio 34.1 RATIO (10-20); Calcium,Total 7.7 mg/dL (8.5-10.1); Chloride 114 mmol/L (98-107); EST Glomerular Filtration Rate 85 mL/min (>60); Est Glom Filt Rate - Afr Amer 103 mL/min (>60); Estimated Creatinine Clearance 38.35 ml/min; Globulin 3.1 g/dL (2.2-4.2); Glucose 102 mg/dL (74-106); Potassium 3.4 mmol/L (3.5-5.1); Protein, Total 5.3 g/dL (6.4-8.2); Sodium Level 145 mmol/L (136-145)
[2020-12-18] MEDS: Propofol 10MG/Ml 1,000 MG/100 ML Bottle 12.4 MG CONT INF ×2 (05:57→13:36)
--- NOTE | 2020-12-18 06:39 | PCM.PN.INT ---
Assessment & Plan Assessment/Plan (1) Acute respiratory failure with hypoxia: (2) Cardiopulmonary arrest with successful resuscitation: PLAN: RECOMMENDATIONS: 1. Continue low-dose Levophed to maintain hemodynamic stability. 2. Continue propofol and antiepileptics per neurology recommendations. 3. Continue heparin infusion. 4. Plan for repeat EEG and MRI brain. 5. Once additional work-up is completed, recommend follow-up evaluation by neurology. IMPRESSIONS: 1. Acute respiratory failure status post cardiopulmonary arrest The patient remains on empiric antimicrobials to cover for potential aspiration. FiO2 requirement is minimal. The patient's underlying mental state will continue to be a barrier to her successful liberation from mechanical ventilation. 2. Encephalopathy Concern for anoxic brain injury. EEG completed yesterday revealed findings concerning for nonconvulsive status. The patient remains on antiepileptics per neurology recommendations. Plan for repeat EEG today along with MRI brain. Overall prognosis is poor. 3. Acute kidney injury Likely prerenal in etiology and related to acute presentation in the setting of #1. The patient remains on low-dose Levophed to maintain hemodynamic stability. Creatinine has normalized. Continue to monitor urine output. No indication for renal replacement therapy. 4. Hypokalemia Electrolyte repletion as ordered. Recheck levels in the morning. 5. Obstructive sleep apnea/advanced age/depression/hyperlipidemia Complicates care, management, recovery and prognosis. Continue supportive measures as noted above. TIME: 36 minutes of critical care time, independent of procedures, was spent addressing the patient's acute respiratory failure status post cardiopulmonary arrest, encephalopathy, acute kidney injury, review of all data and collaboration with the care team. ([id number]) Subjective Subjective The patient was seen and examined at the bedside this morning. Events from the last 24 hours have been reviewed. The patient remains on Levophed at 1 mcg/min in an attempt to maintain hemodynamic stability. She remains on assist control mode of mechanical ventilation with an FiO2 requirement of 30%. The patient is neurologically unchanged from previous. EEG from yesterday revealed periodic epileptiform discharges concerning for subclinical status. The patient remains on propofol and Keppra. Chemistry profile was notable for a potassium of 3.4. Objective Data Objective Data The patient's most recent lab work, culture data and imaging studies have all been personally reviewed. Sputum and blood cultures are pending. Vital Signs: Vital Signs Temp Pulse Resp BP Pulse Ox 98.3 F 87 14 98/67 96 12/18/20 06:00 12/18/20 06:00 12/18/20 06:00 12/18/20 06:00 12/18/20 06:00 Oxygen Flow Rate (L/min) 60 Oxygen Delivery Method Mechanical Ventilator Weight: 68.3 kg Body Mass Index (BMI) 25.3 Intake & Output: Intake and Output for Last 24 Hours 12/16/20 12/17/20 12/18/20 23:59 23:59 23:59 Intake Total 1495.79 / 1506.82 1693.18 / 1696.98 355.30 / 355.30 Output Total 925 / 925 600 / 745 275 / 275 Balance 570.79 / 581.82 1093.18 / 951.98 80.30 / 80.30 Lab / Micro Data Attestation: I reviewed the patient's lab results. Result Diagrams: 12/18/20 05:05 12/18/20 05:05 Labs: Laboratory Results - last 24 hr 12/17/20 09:10: APTT 41.8 H 12/17/20 16:10: APTT 48.9 H 12/17/20 21:45: APTT 55.5 H 12/18/20 05:05: WBC 9.2, RBC 3.44 L, Hgb 10.2 L, Hct 32.5 L, MCV 94.5, MCH 29.7, MCHC 31.4 L, RDW Std Deviation 46.4 H, RDW Coeff of [place]ison 13.6, Plt Count 145 L, MPV 10.3, Immature Gran % (Auto) 0.300, Neut % (Auto) 82.6 H, Lymph % (Auto) 11.7 L, [place] % (Auto) 5.2, Eos % (Auto) 0.0, Baso % (Auto) 0.2, Absolute Neuts (auto) 7.6, Absolute Lymphs (auto) 1.08, Nucleated RBC % 0 12/18/20 05:05: Sodium 145, Potassium 3.4 L, Chloride 114 H, Carbon Dioxide 26.0, Anion Gap 5, BUN 24 H, Creatinine 0.70, Estim Creat Clear Calc 38.35, Est GFR (MDRD) Af Amer 103, Est GFR (MDRD) Non-Af 85, BUN/Creatinine Ratio 34.1 H, Glucose 102, Calcium 7.7 L, Total Bilirubin 0.40, AST 115 H, ALT 93 H, Alkaline Phosphatase 47, Total Protein 5.3 L, Albumin 2.2 L, Globulin 3.1, Albumin/Globulin Ratio 0.7 L 12/18/20 05:05: APTT 64.3 H Micro: Microbiology 12/15/20 21:30 Sputum, Induced/Lukens Gram Stain - Final 12/15/20 21:30 Sputum, Induced/Lukens Respiratory Culture - Preliminary Appears to be normal respiratory diana. Further studies to follow. Physical Exam Const General Appearance: intubated and patient mechanically ventilated Orientation / Consciousness: comatose HEENT normocephalic and head/scalp atraumatic Eyes conjunctivae normal Pupil: not reactive Neck supple General: trachea midline Resp normal respiratory effort Auscultation: Negative for rales, rhonchi or wheezes Cardio regular rate and regular rhythm GI normal to inspection, nondistended, normoactive bowel sounds Extremity no clubbing, cyanosis or edema Skin no rashes or lesions noted Neuro Sensorium / Orientation: obtunded Charges/Coding Procedures Hospitalists Procedures: 60159 Critial Care 1st Hr
[2020-12-18 08:16] LABS: Allen Test Positive; Base Excess 1 mmol/L (-2 to +2); Bicarbonate 23.4 mmol/L (22-26); Blood Gas Specimen Type ART; FI02 30; Mode AC; O2 Delivery Device Adult Vent; PEEP 5; PO2 57 mmHG (75-100); RR 14; SITE R Radial; SO2 93 % (95-99); Total Carbon Dioxide 24 mmol/L; Vt 450; pH 7.53 (7.35-7.45)
--- NOTE | 2020-12-18 09:10 | MRI_ITS ---
STUDY: MRI BRAIN WITHOUT CONTRAST REASON FOR EXAM: Female, 80 years old. mental status change, ANOXIC BRAIN INJURY TECHNIQUE: Standardized multiplanar fat and water weighted pulse sequences were obtained. COMPARISON: 12/16/2020. FINDINGS: No intracranial mass, mass effect, or midline shift. No hemorrhage, territorial infarct, or acute ischemia. There is mild cerebral atrophy with widening of the extra-axial spaces and ventricular dilatation. There are multiple white matter hyperintensities, distributed throughout the deep white matter tracts of the cerebral hemispheres, consistent with moderate chronic white matter ischemic changes. There are prominent perivascular spaces (PVS) involving the basal ganglia. Normal thalami. There is no extra-axial fluid accumulation. Normal flow voids within the major intracranial circulation suggesting patency by spin echo criteria. Normal sella turcica, pituitary gland, infundibular stalk, optic chiasm and hypothalamus. Normal tectal plate and pineal gland. Normal midbrain, nell and medulla. Normal cerebellum. Normal basal cisterns. Normal bilateral internal auditory canals. Mild signal alteration in the temporal bones consistent with inflammatory changes of the mastoid sinuses, age indeterminate. Fluid levels in the maxillary sinuses consistent with intubation. Odontoid fracture with 1 cm posterior displacement of the dens. MRI/Brain without Contrast IMPRESSION: 1. No acute intracranial findings. 2. Microvascular ischemic changes. Atrophy. 3. Odontoid fracture, age indeterminate. Electronically Signed: Ines Guy MD at 16:23 EDT Tel , Service support ,
--- NOTE | 2020-12-18 11:10 | EKG12_ITS ---
Test Reason : ARRYTHMIA Blood Pressure : / mmHG Vent. Rate : 173 BPM Atrial Rate : 173 BPM P-R Int : 096 ms QRS Dur : 072 ms QT Int : 276 ms P-R-T Axes : 000 -23 233 degrees QTc Int : 468 ms Supraventricular tachycardia Low voltage QRS Abnormal ECG Confirmed by LENORE HARGROVE, MARCUS ([id number]), behavioral health specialist ROBYN RAMOS ([id number]) on 12/21/2020 10:14:38 AM Referred By: Suraj Washington Confirmed By:MARUCS GORVER MD
[2020-12-18] MEDS: Famotidine 20 MG Tablet GT (11:27)
[2020-12-18] MEDS: Aspirin 81 MG TAB.CHEW PO (11:27)
[2020-12-18] MEDS: Sertraline 50 MG Tablet GT (11:27)
[2020-12-18] MEDS: Potassium Chloride Oral Soln 20 MEQ/15 ML UDC 40 MEQ PO (11:28)
[2020-12-18] MEDS: Chlorhexidine 15 ML PO (11:35)
--- NOTE | 2020-12-18 13:11 | CHAPLAIN ---
Type of Pastoral Visit _x__ Initial Visit ___ Follow-up Visit ___ On-call Visit ___ General Patient Visit ___ Spiritual Assessment ___ Family Conference ___ Bereavement ___ Rapid Response ___ Code Blue ___ Other (describe below) Pastoral Care Referral From ___ Patient _x__ Family ___ Nurse ___ Physician ___ Automotive Customer Experience Advisor ___ Instrument Assembly Supervisor ___ Other (describe below) Sacrament/Intervention ___ Active listening ___ Anointing ___ Baptist ___ Bereavement ___ Communion ___ Domi exploration ___ ___ Life review _x__ Prayer ___ Reconciliation ___ Sacrament of Sick ___ Supportive presence ___ Wedding ___ Other (describe below) Pastoral Comments patient is vented and unresponsive; call had been made on Friday for Manager Unit Sugar Boiler to meet with family; this product marketing specialist instructed staff to call if and when the family came to visit today; offered prayer for patient; left calling card of support for family
--- NOTE | 2020-12-18 13:51 | PCM.PN.HOSP ---
Subjective Subjective No further myoclonic jerking noted through the night with increased propofol dosing. Patient remains without any interaction even with sedation holidays. She remains on Levophed but only at 1 mcg/min to maintain hemodynamic stability. She does not breathe over the ventilator. Objective Data Objective Data Vital Signs: Vital Signs Temp Pulse Resp BP Pulse Ox 98.6 F 70 14 117/77 98 12/18/20 09:00 12/18/20 10:36 12/18/20 10:36 12/18/20 10:00 12/18/20 10:36 Oxygen Flow Rate (L/min) 60 Oxygen Delivery Method Mechanical Ventilator Weight: 68.3 kg Body Mass Index (BMI) 25.3 Intake & Output: Intake and Output for Last 24 Hours 12/16/20 12/17/20 12/18/20 23:59 23:59 23:59 Intake Total 1495.79 / 1506.82 1693.18 / 1696.98 464.73 / 464.73 Output Total 925 / 925 600 / 745 365 / 365 Balance 570.79 / 581.82 1093.18 / 951.98 99.73 / 99.73 Lab / Micro Data Result Diagrams: 12/18/20 05:05 12/18/20 05:05 Labs: Laboratory Results - last 24 hr 12/17/20 16:10: APTT 48.9 H 12/17/20 21:45: APTT 55.5 H 12/18/20 05:05: WBC 9.2, RBC 3.44 L, Hgb 10.2 L, Hct 32.5 L, MCV 94.5, MCH 29.7, MCHC 31.4 L, RDW Std Deviation 46.4 H, RDW Coeff of [place] 13.6, Plt Count 145 L, MPV 10.3, Immature Gran % (Auto) 0.300, Neut % (Auto) 82.6 H, Lymph % (Auto) 11.7 L, [place] % (Auto) 5.2, Eos % (Auto) 0.0, Baso % (Auto) 0.2, Absolute Neuts (auto) 7.6, Absolute Lymphs (auto) 1.08, Nucleated RBC % 0 12/18/20 05:05: Sodium 145, Potassium 3.4 L, Chloride 114 H, Carbon Dioxide 26.0, Anion Gap 5, BUN 24 H, Creatinine 0.70, Estim Creat Clear Calc 38.35, Est GFR (MDRD) Af Amer 103, Est GFR (MDRD) Non-Af 85, BUN/Creatinine Ratio 34.1 H, Glucose 102, Calcium 7.7 L, Total Bilirubin 0.40, AST 115 H, ALT 93 H, Alkaline Phosphatase 47, Total Protein 5.3 L, Albumin 2.2 L, Globulin 3.1, Albumin/Globulin Ratio 0.7 L 12/18/20 05:05: APTT 64.3 H Micro: Microbiology 12/15/20 21:30 Sputum, Induced/Lukens Gram Stain - Final 12/15/20 21:30 Sputum, Induced/Lukens Respiratory Culture - Preliminary Appears to be normal respiratory diana. Further studies to follow. ABG Data ABG results: ABG 12/18/20 08:12 Specimen Type ART Sample Site R Radial pH 7.53 H Bicarbonate Actual 23.4 Total CO2 24 Base Excess 1 O2 Saturation 93 L O2 % 30 ABG pCO2 28.0 L ABG pO2 57 L James Test Positive Respiration Rate 14 O2 Delivery Device Adult Vent Vent Mode AC Tidal Volume 450 POC PEEP 5 Physical Exam Narrative Intubated on mechanical ventilation Const Constitutional Narrative: Patient is intubated and sedated, no meaningful interaction, no further myoclonic jerking is noted HEENT normocephalic and head/scalp atraumatic Head and Scalp: normocephalic Neck Neck Narrative: Trachea midline Resp normal respiratory effort, no retractions, no use of accessory muscles and clear to auscultation bilaterally Resp Narrative: Diminished right upper lobe Auscultation: rhonchi; Negative for crackles, rales or wheezes Cardio regular rate, regular rhythm, S1 normal heart sound, S2 normal heart sound, no murmurs, no rub, no gallops, no clicks and no JVD Cardio Narrative: Tachycardia GI normal to inspection, nondistended, normoactive bowel sounds, soft to palpation, non-tender and non-distended Extremity normal to inspection and no clubbing, cyanosis or edema Extremity Narrative: Trace bilateral upper and lower extremity edema, no cyanosis or clubbing General Extremity: edema Peripheral Pulses: Yes pulses 2+ throughout Skin no rashes or lesions noted, no wounds, skin turgor normal, no jaundice, no petechiae and no mottling Skin Narrative: PICC right upper extremity, clean and [id number] Neuro Neuro Narrative: No further myoclonus, no meaningful interaction, no response to noxious stimulus although patient is sedated Assessment & Plan Assessment/Plan (1) Acute respiratory failure with hypoxia: (2) Cardiopulmonary arrest with successful resuscitation: (3) Anoxia of brain: (4) Cardiomyopathy: PLAN: Acute hypoxic respiratory failure status post arrest -SpO2 remains 97 to 99% on 30% FiO2 -Continue empiric Unasyn -sputum culture ending -Continue as needed aerosols -Continue sedation vacations and wean readiness Cardiopulmonary arrest -Initial EEG consistent with hypoxic/anoxic brain injury -MRI done 12/16/2020 and shows no acute findings but does show chronic involutional and white matter changes but no cerebral edema -Continue Keppra -Continue Vimpat -Myoclonus has resolved with titration up of propofol in addition of Vimpat -Repeat EEG pending for today -Repeat neurology consult pending -MRI pending -Avoid sedating medications other than propofol as able -Specifically avoid benzodiazepines Possible status epilepticus-nonconvulsive -Repeat EEG pending from this morning -Continue Vimpat and Keppra -Continue propofol for sedation -Repeat MRI -Neurology consult pending for today Aspiration pneumonia -Continue antibiotics as above--> day 3 of 7 -Cultures showed normal diana -MRSA PCR negative Shock -Undifferentiated but suspect cardiogenic -Sepsis work-up in progress -Continue Unasyn -Continue pressors and wean as able -On Levophed at 1 mcg/min Cardiomyopathy/NSTEMI -Suspect related to acute event prior to admission -May need further work-up depending on family's position with regards to care -Patient does have Q waves on her EKG -Hypothermia protocol unfortunately is not available and she is out of the window at this point -Patient is fully anticoagulated with a heparin drip at this time -Cardiology is following Suspected anoxic encephalopathy -Up to 30 minutes of pulseless activity -EEG is consistent with anoxia -MRI is negative at this time but may need repeated in 48 to 72 hours -Neuro is following -Continue Keppra Leukocytosis -Resolved Transaminase elevation -Suspect related to acute cardiac event and CPA -Trending up--> AST is 115 and ALT is 93 -Continue to monitor SUNNY -Resolved Hyperlipidemia -Continue statin Obstructive sleep apnea -Patient intubated History of depression -Hold Zoloft DVT/GI prophylaxis -Continue full dose heparin -Continue famotidine 20 mg twice daily CODE STATUS -Full code Charges/Coding Visit Charges Inpatient E&M: 61721 Subs Hosp L2
[2020-12-18] MEDS: DOPamine IV 800 MG/250 ML IV.SOLN. 6.4 MG CONT INF (17:00)
--- NOTE | 2020-12-18 17:06 | PN.HOSP_ITS ---
Hospitalist Note MRI results reviewed and odontoid fracture with 1 cm of posterior displacement noted. Discussed the read with the radiologist and she notes that it was there on the previous MRI but not reported out. She is unable to tell me whether it was present on admission as if there is no good visualization of the upper cervical spine at that time. She was placed in a c-collar and a stat CT of her cervical spine will be obtained. I discussed the fracture and plan with her daughter. We also discussed CODE STATUS and she is elected to change her CODE STATUS to DNR CCA continued intubation but no further resuscitative efforts at this time. CODE STATUS was changed in [facility].
--- NOTE | 2020-12-18 18:45 | NURSING ---
Pt's family present, pt becoming bradycardic in the 30's. Pt is DNRCC-A w/intubation, no further interventions at this time. Family aware of pt's current condition. Emotional support given.
--- NOTE | 2020-12-18 20:12 | PN.HOSP_ITS ---
Hospitalist Note Called to bedside by Lupe ASTUDILLO. States family wants to speak to a provider regarding changing patient's CODE STATUS to DNRCC and proceeding with extubation of patient. Presented at bedside where I spoke with patient's , daughter and son. states that he does not want to proceed with further testing and invasive care, this is not what my would want. Explained to family what changing CODE STATUS to DNRCC means and how care would proceed. Family states understanding and wants to continue with CODE STATUS change and ex tubation. CODE STATUS changed to DNRCC and comfort care medications ordered. Discussed family's wishes and plan of care with Dr. Herrera who was agreeable to plan. Lupe ASTUDILLO at bedside throughout discussion with family.
[2020-12-18] MEDS: Morphine 4 MG/ML Syringe IV (20:48)
[2020-12-18] MEDS: LORazepam 2 MG/ML Syringe IV (20:48)
[2020-12-18] MEDS: 0.9% Saline Lock 10 ML Syringe IV (20:48)
--- NOTE | 2020-12-18 20:59 | CPS ---
Pt extubated per [employer] verbal order
--- NOTE | 2020-12-18 20:59 | PCM.HOSP.N ---
Hospitalist Note At bedside with Shivani SWANSON and Kacie RN. Pt extubated at 2054. Morphine and ativan administered prior to extubation. Daughter and son at bedside immediately following extubation. 2057 heart monitor noted Asystole. Patient evaluated, no respirations and no audible or palpable heart beat. Family at bedside informed. Dr. Herrera notified as well.
--- NOTE | 2020-12-18 21:29 | PCM.DEATH ---
Preliminary Cause of Preliminary Cause of Preliminary Cause of : Myocardial infarction Date of Admission: 12/15/20 Principle Diagnosis Problem List: Active and Suspected Problems (Updated 12/16/20 @ 07:[address] Gary Henry MD) Anoxia of brain (Acute) Cardiomyopathy (Acute) Acute respiratory failure with hypoxia (Acute) Cardiopulmonary arrest with successful resuscitation (Acute) Hyperlipidemia (Acute) Sleep apnea (Acute) Hospital Course hpi: BRINDA CORRALES, is a 80 F with a significant history of hyperlipidemia and obstructive sleep apnea on CPAP/BiPAP who presents at the emergency department with cardiopulmonary arrest. History was taken from patient as patient was unresponsive. Per patient fall patient was sleeping patient's made a loud noise; curled herself up and fell. Patient's thought that patient was not breathing so he began CPR. Patient doubts the quality of CPR he gave because of space. Paramedics who was present the patient room reported that patient was in PEA arrest and 1 dose of epinephrine and CPR was done. Reportedly patient achieved ROSC. An LMA was placed which was switched to ET tube and mechanical ventilation began at the emergency department. In route to the emergency department a CODE BLUE was called. Later on a STEMI alert was called. On-call cardiology interventionalist saw patient at the emergency department and rule out STEMI as there were no reciprocal changes on EKG initially called as a STEMI. Follow-up EKG at the emergency department did not show ST elevations. STEMI alert at the hospital was canceled per cardiology recommendation. Because of hypotension patient was given IV bolus and was started on Levophed. Patient report that patient baseline blood pressure is low and typically is below 100. Patient was given heparin IV bolus; and aspirin by NG tube. Per cardiology recommendation patient was taken to CT scan for CT scan of her brain. CT scan of her brain did not show any bleeding. Hospital course: Patient remained intubated at a hospital and was placed on sedative medication. She was placed on pressure as to maintain blood pressure. Multiple EEGs revealed bilateral burst suppression. Echocardiogram showed EF 10-15%. MRI was done on 12/16/2020 and 12/18/2020. Director Of [employer] followed patient. Telemetry neurologist follow patient. Patient remained unresponsive with myoclonic jerking's for which reason she was placed on seizure medications. Patient CODE STATUS was changed to DNR CCA with current intubation by family. On 12/18/2020 at 2054 patient was terminally extubated per family request. On 12/17/2020 at 2057 patient . was pronounced by GIN Atkins and communicated to Hospitalist within a frame of 30 minutes. Date of : 12/18/2020 Time of : 2057 Immediate cause of (final disease of condition resulting in ): Myocardial Infarction Duration: Days Listed conditions leading to cause of (due to or as a consequence of) : Heart Failure with reduced ejection fraction; Duration: Years Listed other significant conditions contributing to but not resulting in the underlying cause of : Hyperlipidemia, Sleep apnea Did tobacco contribute to :Unknown
--- NOTE | 2020-12-18 21:42 | NURSING ---
2034- Giovanna Jane CNP is at bedside assessing patient and discussing the terminal extubation process with family. Shivani SWANSON is at bedside preparing to terminal extubation. 2049- Ativan 2mg IVP and Morphine 4mg IVP was given and patient was terminally extubated. All continuous IV drips are stopped and family is at bedside sitting with patient. 2057- Patient has . Giovanna Jane CNP is at bedside and has pronounced time of is 2057.
== END 2020-12-18 20:58 ==
LOC: ED 03:02 → ICU 04:17
PROVIDERS: Internal Medicine Critical Care Medicine; Student in an Organized Health Care Education/Training Program; Admitting Provider Hospitalist; Emergency Provider Emergency Medicine; PCP Family Medicine; Referring Provider Internal Medicine Interventional Cardiology; Visit Provider Internal Medicine
DX: I21.4 Non-ST elevation (NSTEMI) myocardial infarction (principal); J96.01 Acute respiratory failure with hypoxia; J69.0 Pneumonitis due to inhalation of food and vomit; I50.21 Acute systolic (congestive) heart failure; S12.111A Posterior displaced Type II dens fracture, initial encounter for closed fracture; N17.9 Acute kidney failure, unspecified; I42.9 Cardiomyopathy, unspecified; G93.1 Anoxic brain damage, not elsewhere classified; I47.2 Ventricular tachycardia; I46.2 Cardiac arrest due to underlying cardiac condition; W06.XXXA Fall from bed, initial encounter; Y92.9 Unspecified place or not applicable; Y93.9 Activity, unspecified; I44.4 Left anterior fascicular block; E87.6 Hypokalemia; E78.00 Pure hypercholesterolemia, unspecified; I95.9 Hypotension, unspecified; R73.9 Hyperglycemia, unspecified; E78.5 Hyperlipidemia, unspecified; F32.9 Major depressive disorder, single episode, unspecified; G47.33 Obstructive sleep apnea (adult) (pediatric); G25.3 Myoclonus; M19.90 Unspecified osteoarthritis, unspecified site; Z66 Do not resuscitate; Z87.19 Personal history of other diseases of the digestive system; Z79.899 Other long term (current) drug therapy
CPT/HCPCS: 31500; 31720; 36569; 36600; 51702; 70450; 70551; 71045; 80048; 80053; 82550; 82803; 82962; 83735; 84100; 84478; 84484; 85025; 85027; 85610; 85730; 87040; 87070; 87205; 87641; 92950; 93005; 93306; 94002; 94003; 95819; 97802; 99251; 99285; J7030; J7050; Q9957; A4216; C8929; C9254; G0463; J0153; J0295; J3490